=== PATIENT | female | born 1955 | race Caucasian/White ===

== ENCOUNTER 2024-02-17 11:56 | Emergency (ER) | payer OTHER ==
[~2024-02-17] VITALS: Ht 154.9 cm; Wt 95.0 kg
[2024-02-17 12:41] LABS: Basophils # (auto) 0 10 ^3/uL (0-0.2); Basophils % (auto) 0.3 % (0.0-2.0); Eosinophils # (auto) 0 10 ^3/uL (0-0.8); Eosinophils % (auto) 0.2 % (0.0-7.0); Hematocrit 42.7 % (36.0-46.0); Hemoglobin 13.9 g/dL (12.2-16.2); Lymphocytes # (auto) 1.5 10 ^3/uL (0.4-5.4); Lymphocytes % (auto) 9.5 % (10.0-50.0); Mean Corpuscular Hemoglobin 28.4 pg (28.0-32.0); Mean Corpuscular Hgb Conc. 32.6 g/dL (32.0-36.0); Monocytes # (auto) 1.1 10 ^3/uL (0-1.3); Monocytes % (auto) 6.6 % (0.0-12.0); Neutrophils # (auto) 13.3 10 ^3/uL (1.6-8.6); Neutrophils % (auto) 83.4 % (37.0-80.0); Red Blood Cells 4.91 10^6/uL (4.0-5.20); Red Cell Distribution Width 13.9 % (11.8-14.3)
[2024-02-17 13:10] LABS: Chloride 103 mmol/L (98-107); Potassium 3.7 mmol/L (3.5-5.1); Sodium 136 mmol/L (136-145)
[2024-02-17 13:11] LABS: Anion Gap 8 (5-15); Calcium 9.2 mg/dL (8.7-10.4); Carbon Dioxide 25 mmol/L (20-30)
[2024-02-17 13:16] LABS: BUN/Creatinine Ratio 11.1 (10.0-20.0); Blood Urea Nitrogen 8 mg/dL (9-23); Glucose 112 mg/dL (74-106)
[2024-02-17] MEDS: cefTRIAXone 1GM/50ML D5W 50 ML IV ONE (13:57)
[2024-02-17] MEDS: ASPirin 81 mg TAB PO ONE (13:58)
[2024-02-17] MEDS: cloNIDine HCL 0.1 MG TAB PO ONE (14:06)
[2024-02-17 14:35] VITALS: PULSE 96; RESP 17; O2SAT 95
[2024-02-17] MEDS: SODIUM CHLORIDE 0.9% 500 ML IV ONE (17:21)
[2024-02-17] MEDS: KETOROLAC TROMETH 30 MG/ML 1ML VIAL IV ONE (17:22)
[2024-02-17 19:00] VITALS: PULSE 96; RESP 22; O2SAT 93
[2024-02-17 19:51] LABS: Rapid Influenza A Negative (Negative)
[2024-02-17 19:52] LABS: Rapid Influenza B Negative (Negative)
[2024-02-17 19:55] LABS: COVID19 ANTIGEN SOFIA FIA POSITIVE (NEGATIVE)
[2024-02-17] MEDS ORDERED: NIRM1TAB8 PO (20:04)
[2024-02-17] MEDS ORDERED: METH4TAB PO (20:16)
[2024-02-17] MEDS: HYDROcodone-ACET 10/325MG TAB PO ONE (20:41)
[2024-02-17] MEDS: methylPREDNISolone SOD SUCC 125 MG/2 ML VL IV ONE (20:41)
[2024-02-17 21:00] VITALS: BP 141/63; PULSE 93; RESP 26; TEMP 98.3; O2SAT 95
== END 2024-02-17 21:53 | disposition admitted as inpatient to this hospital (09) ==
LOC: ER 11:56 → EDBD 11:56 → ER 21:53
DX: A41.89 Other specified sepsis (principal); U07.1 COVID-19; N39.0 Urinary tract infection, site not specified; I24.89 Other forms of acute ischemic heart disease; I10 Essential (primary) hypertension; Z91.040 Latex allergy status
CPT/HCPCS: 36415; 71045; 72131; 72192; 80048; 83605; 84484; 85025; 87040; 87426; 87804; 93005; 96365; 96375; 99285; J0696; J1885; J2919; J7040; 81002; 96361

== ENCOUNTER 2024-09-14 15:10 | Emergency (ER) | payer OTHER ==
[~2024-09-14] VITALS: Ht 160 cm; Wt 91.0 kg
[~2024-09-14 15:10] MED LIST: METH4TAB PO; NIRM1TAB8 PO
--- NOTE | 2024-09-14 16:41 | DVH ---
CHEST RADIOGRAPH Indication: cough Technique: Frontal and lateral view of the chest was obtained Comparison: None FINDINGS: Lines and Tubes: None Lungs: Clear Pleura: No effusion. No pneumothorax. Cardiomediastinal contours: Unremarkable Bones: Unremarkable IMPRESSION: 1. No evidence of acute disease.
[2024-09-14 17:21] LABS: Basophils # (auto) 0.1 10 ^3/uL (0-0.2); Basophils % (auto) 0.6 % (0.0-2.0); Eosinophils # (auto) 0.3 10 ^3/uL (0-0.8); Eosinophils % (auto) 2.8 % (0.0-7.0); Hemoglobin 14.6 g/dL (12.2-16.2); Lymphocytes # (auto) 1.5 10 ^3/uL (0.4-5.4); Lymphocytes % (auto) 14.4 % (10.0-50.0); Mean Corpuscular Hemoglobin 28.8 pg (28.0-32.0); Mean Corpuscular Hgb Conc. 33.2 g/dL (32.0-36.0); Mean Corpuscular Volume 86.7 fL (80.0-100.0); Monocytes # (auto) 0.7 10 ^3/uL (0-1.3); Monocytes % (auto) 7.3 % (0.0-12.0); Neutrophils # (auto) 7.5 10 ^3/uL (1.6-8.6); Neutrophils % (auto) 74.9 % (37.0-80.0); Platelet Count (auto) 248 10^3/uL (140-450); Red Blood Cells 5.08 10^6/uL (4.0-5.20); Red Cell Distribution Width 13.1 % (11.8-14.3); White Blood Cell 10.1 10^3/uL (4.4-10.8)
[2024-09-14 17:38] LABS: Alanine Aminotransferase 16 U/L (7-40); Albumin 4.2 g/dL (3.2-4.8); Alkaline Phosphatase 92 U/L (46-116); Anion Gap 8 (5-15); Aspartate Aminotransferase 17 U/L (13-40); BUN/Creatinine Ratio 12.8 (10.0-20.0); Blood Urea Nitrogen 10 mg/dL (9-23); Calcium 9.3 mg/dL (8.7-10.4); Carbon Dioxide 23 mmol/L (20-31); Glucose 102 mg/dL (74-106); Potassium 3.6 mmol/L (3.5-5.1); Sodium 139 mmol/L (136-145); Total Protein 6.7 g/dL (5.7-8.2)
[2024-09-14 17:50] LABS: Bilirubin, Total 0.2 mg/dL (0.2-1.0); Chloride 108 mmol/L (98-107)
--- NOTE | 2024-09-14 18:47 | ED.PDOC ---
SOB-HPI HPI Comments 69-YEAR-OLD FEMALE WHO PRESENTS TO ER WITH COMPLAINTS OF COUGH X3 DAYS. PATIENT PRESENTS VIA EMS, REPORTING SHE HAS BEEN EXPERIENCING A DRY COUGH X3 DAYS. DENIES ANY CURRENT PAIN. DENIES USE OF MEDICATIONS FOR CURRENT SYMPTOMS. PATIENT STATES THAT SHE DOES LIVE WITH ROOMMATES, DENYING ANY KNOWN EXPOSURE TO SICK CONTACTS. PATIENT PRESENTS TO ER FEBRILE ON ARRIVAL AT 100.0 F, ALERT AND ORIENTED X4, IN NO DISTRESS. 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 History Family History Family History: Unknown Social History Smoker: Non-Smoker Alcohol: Denies ETOH Use Drugs: Denies Drug Use Lives In: Assisted Care Constitutional: denies: chills, diaphoresis, fatigue, fever, malaise, sweats, weakness, others EENTM: denies: blurred vision, double vision, ear bleeding, ear discharge, ear drainage, ear pain, ear ringing, eye pain, eye redness, hearing loss, mouth pain, mouth swelling, nasal discharge, nose bleeding, nose congestion, nose pain, photophobia, tearing, throat pain, throat swelling, voice changes, others Respiratory: reports: others (As stated in HPI) Cardiovascular: denies: chest pain, dizzy spells, diaphoresis, Dyspnea on exertion, edema, irregular heart beat, left arm pain, lightheadedness, palpitations, PND, syncope, others Gastrointestinal: denies: abdomen distended, abdominal pain, blood streaked bowels, constipated, diarrhea, dysphagia, difficulty swallowing, hematemesis, melena, nausea, poor appetite, poor fluid intake, rectal bleeding, rectal pain, vomiting, others Genitourinary: denies: abnormal vagina bleeding, burning, dyspareunia, dysuria, flank pain, frequency, hematuria, incontinence, pain, , vagina discharge, urgency, others Neurological: denies: dizziness, fainting, headache, left sided numbness, left sided weakness, numbness, paresthesia, pre-existing deficit, right sided numbness, right sided weakness, seizure, speech problems, tingling, tremors, weakness, others Musculoskeletal: denies: back pain, gout, joint pain, joint swelling, muscle pain, muscle stiffness, neck pain, others Integumetry: denies: bruises, change in color, change in hair/nails, dryness, laceration, lesions, lumps, rash, wounds, others Allergic/Immunocompromised: denies: Difficulty Healing, Frequent Infections, Hives, Itching, others Hematologic/Lymphatic: denies: anemia, blood clots, easy bleeding, easy bruising, swollen glands, others Endocrine: denies: excessive hunger, excessive sweating, excessive thirst, excessive urination, flushing, intolerance to cold, intolerance to heat, unexplained weight gain, unexplained weight loss, others Psychiatric: denies: anxiety, bipolar disorder, depression, hopeless, panic disorder, schizophrenia, sleepless, suicidal, others Physical Exam General Appearance: No Apparent Distress, Obese HEENT: Normal ENT Inspection, PERRL/EOMI, Pharynx Normal, TMs Normal Neck: Full Range of Motion, Non-Tender, Normal Respiratory: Chest Non-Tender, Lungs Clear, No Accessory Muscle Use, No Respiratory Distress, Normal Breath Sounds Cardiovascular: No Murmur, No Gallop, Regular Rate/Rhythm Breast Exam: Deferred Gastrointestinal: Non Tender, No Pulsatile Mass, Soft Genitalia: Deferred Pelvic: Deferred Rectal: Deferred Extremities: Normal capillary refill, Normal range of motion Neurologic: Alert, guide setter II-XII nml as Tested, No Motor Deficits, Normal Affect, Normal Mood, No Sensory Deficits Cerebellar Function: Normal Reflexes: Normal Skin: Dry, Normal Color, Warm Peripheral Pulses: 2+ Radial (R), 2+ Radial (L), 2+ Brachial (R), 2+ Brachial (L) Lymphatic: No Adenopathy Was a procedure done? Was a procedure done?: No Sedation Sedation?: No Differential Dx Differential Diagnosis: Pneumonia, Pulmonary Embolism, Respiratory Distress, URI, Other (covid-19) X-Ray, Labs, Meds, VS Vital Signs Date Time Temp Pulse Resp B/P (MAP) Pulse Ox O2 Delivery O2 Flow Rate FiO2 09/14/24 20:40 99.3 94 14 149/61 (90) 97 99.3 12/30/24 19:05 110 18 97 Room Air 12/30/24 19:05 100.0 110 18 185 (105) 97 100.0 09/14/24 18:58 100.0 09/14/24 15:17 100.0 110 18 185 (105) 97 Lab Test 09/14/24 18:53 09/14/24 16:58 Range/Units Influenza Type A Antigen Positive Negative Influenza Type B Antigen Negative Negative SARS-CoV-2 Antigen (Rapid) Negative NEGATIVE White Blood Count 10.1 4.4-10.8 10^3/uL Red Blood Count 5.08 4.0-5.20 10^6/uL Hemoglobin 14.6 12.2-16.2 g/dL Hematocrit 44.0 36.0-46.0 % Mean Corpuscular Volume 86.7 80.0-100.0 fL Mean Corpuscular Hemoglobin 28.8 28.0-32.0 pg Mean Corpuscular Hemoglobin Concent 33.2 32.0-36.0 g/dL Red Cell Distribution Width 13.1 11.8-14.3 % Platelet Count 248 140-450 10^3/uL Mean Platelet Volume 7.8 6.9-10.8 fL Neutrophils (%) (Auto) 74.9 37.0-80.0 % Lymphocytes (%) (Auto) 14.4 10.0-50.0 % Monocytes (%) (Auto) 7.3 0.0-12.0 % Eosinophils (%) (Auto) 2.8 0.0-7.0 % Basophils (%) (Auto) 0.6 0.0-2.0 % Neutrophils # (Auto) 7.5 1.6-8.6 10 ^3/uL Lymphocytes # (Auto) 1.5 0.4-5.4 10 ^3/uL Monocytes # (Auto) 0.7 0-1.3 10 ^3/uL Eosinophils # (Auto) 0.3 0-0.8 10 ^3/uL Basophils # (Auto) 0.1 0-0.2 10 ^3/uL Nucleated Red Blood Cells 0.0 % Sodium Level 139 136-145 mmol/L Potassium Level 3.6 3.5-5.1 mmol/L Chloride Level 108 H 98-107 mmol/L Carbon Dioxide Level 23 20-31 mmol/L Anion Gap 8 5-15 Blood Urea Nitrogen 10 9-23 mg/dL Creatinine 0.78 0.550-1.02 mg/dL Glomerular Filtration Rate Calc 81 >90 mL/min BUN/Creatinine Ratio 12.8 10.0-20.0 Serum Glucose 102 74-106 mg/dL Calcium Level 9.3 8.7-10.4 mg/dL Total Bilirubin 0.2 0.2-1.0 mg/dL Aspartate Amino Transferase (AST) 17 13-40 U/L Alanine Aminotransferase (ALT) 16 7-40 U/L Alkaline Phosphatase 92 46-116 U/L Troponin I High Sensitivity 7 </=34 ng/L B-Type Natriuretic Peptide 77.75 0-100 pg/mL Total Protein 6.7 5.7-8.2 g/dL Albumin 4.2 3.2-4.8 g/dL Current Medications Medications (Trade) Dose Ordered Sig/Fermín Route Start Time Stop Time Status Last Admin Acetaminophen (Tylenol Tablet) 650 mg ONCE ONCE PO 09/14/24 18:30 09/14/24 18:31 DC 09/14/24 18:58 PATIENT: ROBERT LOPEZ ACCT: [id number] UNIT: [id number] : 1955 LOC: ER ROOM / BED: / AGE / SEX: 69 / F ADM STATUS: REG ER SERVICE 13 ORDERING PHYSICIAN: LUIS ASHLEY PAYROLL PROCESSOR PROCEDURE(s): CXR2 - CHEST TWO VIEWS ROUTINE REASON: cough ORDER NUMBER(s): [id number], ACCESSION NUMBER(s): [id number] CHEST RADIOGRAPH Indication: cough Technique: Frontal and lateral view of the chest was obtained Comparison: None FINDINGS: Lines and Tubes: None Lungs: Clear Pleura: No effusion. No pneumothorax. Cardiomediastinal contours: Unremarkable Bones: Unremarkable IMPRESSION: 1. No evidence of acute disease. ATED BY: DUNG MARTEL MD DICTATED DATE/TIME: 09/14/241638 SIGNED BY: DUNG MARTEL MD SIGNED DATE/TIME: 09/14/241638 CC: Chest x-ray reviewd CBC reviewed-unremarkable BMP reviewed without any significant abnormalities Troponin reviewed-normal BNP reviewed-normal Tylenol 650 mg p.o. ordered Influenza A reviewed- positive Influenza B reviewed -negative Krysta reviewed -negative Patient had improvement in symptoms and in no distress prior to discharge Advised to drink plenty of fluids Advised to follow up with PCP in 1-2 days Patient alert and oriented x4 prior to discharge. Patient verbalized understanding and agreeable with current plan of care Advised to return to ER immediately if symptoms worsen Images Reviewed?: Images reviewed and evaluated by me Time of 1ST Reevaluation: 18:42 Reevaluation 1ST: N/A Time of 2ND Reevaluation: 20:22 Reevaluation 2ND: Improved Patient Education/Counseling: Diagnosis, Treatment, Prognosis, Need For Follow Up Family Education/Counseling: No Family Present Departure 1 Departure Time of Disposition: 20:32 Impression: Primary Impression: Influenza A Disposition: HOME / SELF CARE / HOMELESS Condition: Stable e-Prescriptions Oseltamivir Phosphate (Tamiflu) 75 Mg Cap 1 CAP PO BID for 5 Days, #10 CAP 0 Refills Prov: MISAEL PICKENS 09/14/24 Acetaminophen (Acetaminophen) 500 Mg Tab 500 MG PO Q4HPRN, #30 TAB 0 Refills Prov: MISAEL PICKENS 09/14/24 Discharged With: Friend Critical Care Note Critical Care Time?: No Stability Stability form required: No Heart Score Heart Score: Heart Score Response (Comments) Value History N/A 0 EKG N/A 0 Age N/A 0 Risk Factors N/A 0 Troponin N/A 0 Total 0 MISAEL PICKENS Sep 14, 2024 18:47
[2024-09-14] MEDS: ACETAMINOPHEN 325 MG TAB PO ONE (18:58)
[2024-09-14 20:33] LABS: COVID19 ANTIGEN SOFIA FIA NEGATIVE (NEGATIVE); Rapid Influenza A Positive (Negative); Rapid Influenza B Negative (Negative)
[2024-09-14] MEDS ORDERED: OSEL75CA5 PO (20:36)
[2024-09-14] MEDS ORDERED: ACET500T58 PO (20:36)
[2024-09-14 20:40] VITALS: BP 149/61; PULSE 94; RESP 14; TEMP 99.3; O2SAT 97
== END 2024-09-14 21:00 | disposition home or self-care (01) ==
LOC: EDBD 15:10 → ER 15:10
DX: J10.1 Influenza due to other identified influenza virus with other respiratory manifestations (principal); Z90.49 Acquired absence of other specified parts of digestive tract; Z20.822 Contact with and (suspected) exposure to COVID-19
CPT/HCPCS: 36415; 71046; 80053; 83880; 84484; 85025; 87426; 87804

== ENCOUNTER 2025-02-17 00:25 | Inpatient (IN) | payer MEDICAID, OTHER ==
[~2025-02-17] VITALS: Ht 154.9 cm; Wt 80.0 kg
[2025-02-17] VITALS (12 sets, daily range): BP systolic 133–160; BP diastolic 51–82; PULSE 76–100; RESP 16–20; TEMP 97.5–98.1; O2SAT 92–98
[~2025-02-17 00:25] MED LIST changes: +ACET500T58 PO; +OSEL75CA5 PO
[2025-02-17] MEDS ORDERED: ACETAMINOPHEN 325 MG TAB PO PRN (03:15)
--- NOTE | 2025-02-17 03:57 | DVHHPRES ---
History of Present Illness Resident Creating Document: MINDYCHASITYBRANDAN BrainCELINAE History of Present Illness A 69-year-old female with no past medical history of relevance who takes no medications at home. The patient was brought to our facility via direct admission from [facility] due to altered level of consciousness. Per peer to peer review, the patient was found unresponsive with foam on the mouth in a car. On admission, while talking to the patient, she reports that she was with two friends in the street and she was using a wheelchair when she started to feel dizzy and lost consciousness. The patient states that he is not able to recall the entire scenario but that they are friends told her that she was having foaming in the mouth and that her eyes rolled back and were all white so they called EMS. The patient states that her friends did not mention any shakiness, abnormal moving of the upper or lower extremities during the episode. The patient also denies any history of seizures and states that this is the 1st episode with these kind of symptoms. On admission, the patient is alert and oriented in person, place and time, denied headache, chest pain, shortness of breath, fever/chills, weakness or dizziness. Patient will be admitted for further assessment and management. Past medical history: Denies Home medications: Occasional Benadryl for allergies Surgical history: Cholecystectomy, appendectomy, two surgeries of the left knee unspecified Social history: Reports occasional marijuana use but denies alcohol and stated that she quit smoking long time ago. Patient rents a room from a friend. Past Surgical History: Appendectomy, Cholecystectomy, Other (Unspecified left knee surgery x2) Family History: None Smoke: Quit ALCOHOL: none Drugs: Marijuana Lives: Friends Domestic Violence: Neg Review of Systems Constitutional: No: Fever, Chills, Sweats, Weakness, Malaise, Other Eyes: No: Pain, Vision change, Conjunctivae inflammation, Eyelid inflammation, Other, Redness ENT: No: Ear pain, Ear discharge, Nose pain, Nose discharge, Nose congestion, Mouth pain, Mouth swelling, Throat pain, Throat swelling, Other Respiratory: No: Cough, Dry, Shortness of breath, SOB with excertion, Wheezing, Hemoptysis, Pleuritic Pain, Sputum, Wheezing, Other Cardiovascular: No: Chest Pain, Palpitations, Orthopnea, Paroxysmal Noc. Dyspnea, Edema, Lt Headedness, Other Gastrointestinal: No: Nausea, Vomiting, Abdominal Pain, Diarrhea, Constipation, Melena, Hematochezia, Other Genitourinary: No Dysuria, No Frequency, No Incontinence, No Hematuria, No Retention, No Other Musculoskeletal: No: other, neck pain, shoulder pain, arm pain, back pain, hand pain, leg pain, foot pain Skin: No: Rash, Lesions, Jaundice, Bruising, Other Neurological: No: Weakness, Numbness, Incoordination, Change in speech, Confusion, Seizures, Other Allergies: Coded Allergies: Iodine (Verified Allergy, Unknown, 02/17/24) Medications Current Medications Medications Dose Ordered Sig/Fermín Route Start Time Stop Time Status Last Admin Dose Admin Acetaminophen 650 mg Q6HP PRN PO 02/17/25 03:15 Acetaminophen/ Hydrocodone Bitart 1 tab Q4HP PRN PO 02/17/25 03:15 Enoxaparin Sodium 40 mg DAILY SC 02/17/25 10:00 UNV Exam Vital Signs Vital Signs Date Time Temp Pulse Resp B/P (MAP) Pulse Ox O2 Delivery O2 Flow Rate FiO2 02/17/25 01:55 97.8 80 18 133/60 (84) 96 97.8 General Appearance: Alert, Oriented X3, Cooperative, No acute distress HEENT: Atraumatic, PERRLA, EOMI, Mucous membr. moist/pink Respiratory: Clear to auscultation, Normal air movement Cardiovascular: Regular rate, Normal S1, Normal S2, No murmurs Abdominal: Normal bowel sounds, Soft, No tenderness, No hepatospenomegaly Extremities: No clubbing, No cyanosis, No edema, Normal pulses, No tenderness/swelling Skin: No rashes, No breakdown, No significant lesion Neuro: Normal gait, Normal speech, Strength at 5/5 X4 ext, Normal tone, Sensati on intact, Cranial nerves 3-12 NL, Reflexes 2+ Psych/Mental Status: Mental status NL, Mood NL Assessment/Plan Assessment/Plan Assessment/plan Altered level of consciousness, R/O seizure disorder Acute metabolic/toxic encephalopathy Acute UTI Possible episode of seizure Plan -ordered chest x-ray -ordered ammonia levels, TSH, free T4, folate, lactic acid, CBC, CMP, EKG, ECHO -consult neurology for possible seizure disorder and to evaluate possibility of EEG -CT of the head performed at [facility] before admission was grossly unremarkable -Ordered UA and UDS -Start IV fluids NS at 60cc/hr -Start IV ceftriaxone Goals of care discussed with the patient at bedside, FULL CODE Plan discussed with Dr. Kendrick Plan discussed with: Patient My Orders Orders - GAUTAM RODAS Procedure Category Date Status Time Complete Blood Count LAB 02/17/25 Logged 02:49 Comprehensive LAB 02/17/25 Logged Metabolic Panel 02:49 Admit ADMIT 02/17/25 Transmitted 03:01 Code Status CODE 02/17/25 Transmitted 03:01 Vital Signs JOHN 02/17/25 In Process 03:01 Review Orders With JOHN 02/17/25 In Process Adm.Md 03:01 Encourage Activity As JOHN 02/17/25 In Process Tolerate 03:01 Regular Diet DIET 02/17/25 Transmitted Breakfast Acetaminophen Tablet PHA 02/17/25 In Process (Tylenol Tablet) 03:15 Notify Md Of Changes JOHN 02/17/25 In Process From Base 03:01 Advance Directive JOHN 02/17/25 In Process 03:01 Urinalysis LAB 02/17/25 Logged 03:01 Patient Condition ORDERS 02/17/25 Transmitted 03:01 Allergies JOHN 02/17/25 In Process 03:01 Hydrocodone-Acet PHA 02/17/25 In Process 5/325mg Tab (Talent 03:15 Drug Screen LAB 02/17/25 Logged 03:01 Hemoglobin A1c LAB 02/17/25 Logged 03:01 Enoxaparin Sodium PHA 02/17/25 Pending (Lovenox) 10:00 Electrocardigram EKG 02/17/25 Logged 03:01 Lactic Acid W/ Reflex LAB 02/17/25 Logged Order 03:04 Chest Xray 1 View XY 02/17/25 Logged 03:04 * Neurology Consult CONS 02/17/25 Transmitted 03:04 Lipid Panel LAB 02/17/25 Logged 02:49 Date of Service: Feb 17, 2025 Billing Provider: NATO KENDRICK MD Common Visit Codes: [id number] INP/OBS CARE (HIGH) Secondary Visit Codes: [id number] CARE PLAN 30 MINUTES GAUTAM RODAS Feb 17, 2025 03:57
[2025-02-17 04:22] LABS: Basophils # (auto) 0.1 10 ^3/uL (0-0.2); Basophils % (auto) 0.8 % (0.0-2.0); Eosinophils # (auto) 0.4 10 ^3/uL (0-0.8); Hemoglobin 13.6 g/dL (12.2-16.2); Lymphocytes # (auto) 2.9 10 ^3/uL (0.4-5.4); Lymphocytes % (auto) 24.3 % (10.0-50.0); Mean Corpuscular Hemoglobin 27.7 pg (28.0-32.0); Mean Corpuscular Hgb Conc. 32.4 g/dL (32.0-36.0); Mean Corpuscular Volume 85.6 fL (80.0-100.0); Monocytes # (auto) 0.7 10 ^3/uL (0-1.3); Monocytes % (auto) 6.2 % (0.0-12.0); Neutrophils # (auto) 7.8 10 ^3/uL (1.6-8.6); Neutrophils % (auto) 65.7 % (37.0-80.0); Nucleated Red Blood Cells % 0.1 %; Platelet Count (auto) 268 10^3/uL (140-450); Red Blood Cells 4.91 10^6/uL (4.0-5.20); Red Cell Distribution Width 13.5 % (11.8-14.3); White Blood Cell 11.9 10^3/uL (4.4-10.8)
[2025-02-17 04:23] LABS: Alanine Aminotransferase 15 U/L (7-40); Albumin 3.9 g/dL (3.2-4.8); Alkaline Phosphatase 73 U/L (46-116); Anion Gap 9 (5-15); Aspartate Aminotransferase 16 U/L (13-40); BUN/Creatinine Ratio 15.9 (10.0-20.0); Bilirubin, Total 0.5 mg/dL (0.2-1.0); Blood Urea Nitrogen 10 mg/dL (9-23); Carbon Dioxide 25 mmol/L (20-31); Glucose 88 mg/dL (74-106); Potassium 3.8 mmol/L (3.5-5.1); Sodium 144 mmol/L (136-145); Total Protein 6.7 g/dL (5.7-8.2)
[2025-02-17 04:34] LABS: Chloride 110 mmol/L (98-107)
[2025-02-17 04:58] LABS: Triglycerides 100 mg/dL (< 150)
[2025-02-17 04:59] LABS: LDL Cholesterol 68 mg/dL (< 100)
[2025-02-17 05:00] LABS: Cholesterol 112 mg/dL (< 200)
[2025-02-17 05:02] LABS: HDL Cholesterol 30 mg/dL (40-59)
[2025-02-17 06:37] LABS: Urine Bacteria FEW /hpf (None Seen); Urine Blood TRACE /uL (Negative); Urine Clarity Turbid (Clear); Urine Color Light-Yellow (Yellow); Urine Protein, UAD Negative (Negative); Urine Specific Gravity 1.015 (1.001-1.035); Urine Squamous Epithelial Cell FEW /hpf (<5); Urine Urobilinogen Normal (Negative); Urine WBC 152 /HPF (0-5)
[2025-02-17 06:40] LABS: Amphetamine Screen, Urine Neg (NEGATIVE); Barbiturate Scree,Urine Neg (NEGATIVE); Benzodiazephine Screen, Urine Neg (NEGATIVE); Cannabinoid Screen, Urine Neg (NEGATIVE); Cocaine Screen, Urine Neg (NEGATIVE); Opiate Scree,Urine Neg (NEGATIVE); Phencyclidine Screen, Urine Neg (NEGATIVE)
--- NOTE | 2025-02-17 06:44 | DVH ---
CHEST RADIOGRAPH Indication: eval lung parenchyma Technique: Single frontal view of the chest was obtained Comparison: XY CHEST XRAY 1 VIEW on DOS: 02/17/24 FINDINGS: Lines and Tubes: None Lungs: No focal consolidation. Pleura: No effusion. No pneumothorax. Cardiomediastinal contours: Unremarkable Bones: No acute osseous abnormality. IMPRESSION: 1. No acute cardiopulmonary disease.
[2025-02-17 07:19] LABS: Folate (Folic Acid) 9.34 ng/mL (>5.38); Free T4 (Free Thyroxine) 1.31 ng/dL (0.89-1.76)
[2025-02-17 07:22] LABS: COVID19 ANTIGEN SOFIA FIA NEGATIVE (NEGATIVE); Rapid Influenza A Negative (Negative); Rapid Influenza B Negative (Negative)
[2025-02-17] MEDS: cefTRIAXone 1GM/50ML D5W 50 ML IV SCH (08:52)
[2025-02-17] MEDS: ENOXAPARIN SOD 40 MG/0.4 ML SYRINGE SC SCH (08:59)
--- NOTE | 2025-02-17 09:40 | DVH ---
CT HEAD WITHOUT CONTRAST INDICATION: rule out stroke EXAM DATE: 02/17/2025 09:04 AM COMPARISON: None RADIATION DOSE: CTDIvol: 51.22 mGy, DLP: 1009.64 mGy*cm PROCEDURE: CT scans of the head were obtained from the vertex to the skull base. Sagittal and coronal reconstructions were provided. All CT scans at this medical facility are performed using dose modulation techniques as appropriate t o a performed exam including the following: Automated exposure control was utilized; adjustment of th e MA and/or KV according to patient size; and use of iterative reconstruction technique. FINDINGS: There is sulcal and ventricular prominence. The brainshows normal morphology and vega-whi te matter differentiation, without intracranial hemorrhage, extra-axial fluid collection, mass effect or acute large vessel infarct. The ventricles are normal in size. The basal cisterns are patent. The skull and visible facial bones are intact. The paranasal sinuses, mastoid air cells and middle ear c avities are well-aerated. The soft tissues of the scalp are unremarkable. IMPRESSION: No acute intracranial abnormality.
--- NOTE | 2025-02-17 10:27 | ECG ---
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
--- NOTE | 2025-02-17 10:48 | DVHPNRES ---
Progress Note Date Seen: Feb 17, 2025 Resident Creating Document: MONY WAITE RESIDENT Has the PT tested + for MRSA If YES, has PT been informed?: No Medical Necessity Reason Pt with a Central, PICC or Fol: No Subjective Review of Systems A 69-year-old female with no past medical history of relevance who takes no medications at home. The patient was brought to our facility via direct admission from [facility] due to altered level of consciousness. Per peer to peer review, the patient was found unresponsive with foam on the mouth in a car. On admission, while talking to the patient, she reports that she was with two friends in the street and she was using a wheelchair when she started to feel dizzy and lost consciousness. The patient states that he is not able to recall the entire scenario but that they are friends told her that she was having foaming in the mouth and that her eyes rolled back and were all white so they called EMS. The patient states that her friends did not mention any shakiness, abnormal moving of the upper or lower extremities during the episode. The patient also denies any history of seizures and states that this is the 1st episode with these kind of symptoms. On admission, the patient is alert and oriented in person, place and time, denied headache, chest pain, shortness of breath, fever/chills, weakness or dizziness. Patient will be admitted for further assessment and management. Past medical history: Denies Home medications: Occasional Benadryl for allergies Surgical history: Cholecystectomy, appendectomy, two surgeries of the left knee unspecified Social history: Reports occasional marijuana use but denies alcohol and stated that she quit smoking long time ago. Patient rents a room from a friend. Past Surgical History: Appendectomy, Cholecystectomy, Other (Unspecified left knee surgery x2) Family History: None Smoke: Quit ALCOHOL: none Drugs: Marijuana Lives: Friends Domestic Violence: Neg 02/17/2025: Head CT scan and brain MRI with no abnormalities, stroke was ruled out, neurology stated an episodic event and possible gait disorder, no need of seizure treatment at the moment, patient is stable, possible DC tomorrow Objective vital signs Vital Sign Date Time Temp Pulse Resp B/P (MAP) Pulse Ox O2 Delivery O2 Flow Rate FiO2 02/17/25 09:00 97.9 81 18 142/51 (81) 92 97.9 02/17/25 02:46 Room Air* 0 21 Total Intake and Output 02/16/25 02/16/25 02/17/25 15:00 23:00 07:00 Intake Total 100 ml Balance 100 ml medications Current Medications Medications Dose Ordered Sig/Fermín Route Start Time Stop Time Status Last Admin Dose Admin Acetaminophen 650 mg Q6HP PRN PO 02/17/25 03:15 Acetaminophen/ Hydrocodone Bitart 1 tab Q4HP PRN PO 02/17/25 03:15 Enoxaparin Sodium 40 mg DAILY SC 02/17/25 10:00 02/17/25 08:59 40 MG Ceftriaxone Sodium 50 ml @ 100 mls/hr DAILY@09 IV 02/17/25 09:00 02/17/25 08:52 100 MLS/HR Examination General Appearance: Alert, Oriented X3, Cooperative, No acute distress HEENT: Atraumatic, PERRLA, EOMI, Mucous membr. moist/pink Respiratory: Clear to auscultation, Normal air movement Cardiovascular: Regular rate, Normal S1, Normal S2, No murmurs Abdominal: Normal bowel sounds, Soft, No tenderness, No hepatospenomegaly Extremities: No clubbing, No cyanosis, No edema, Normal pulses, No tenderness/swelling Skin: No rashes, No breakdown, No significant lesion Neuro: Normal gait, Normal speech, Strength at 5/5 X4 ext, Normal tone, Sensation intact, Cranial nerves 3-12 NL, Reflexes 2+ Psych/Mental Status: Mental status NL, Mood NL laboratory and microbiology Laboratory Tests 02/17/25 03:32 Test 02/17/25 03:32 Range/Units Serum Glucose 88 74-106 mg/dL Problem List/Assessment/Plan Problem List/Assessment/Plan #Acute metabolic/toxic encephalopathy due to sepsis? #Possible episodic event of seizure #Stroke ruled out #Sepsis: Acute UTI #Hypertension? Plan chest x-ray: normal Head ct scan normal, MRI normal ammonia levels normal , TSH, free T4 normal , folate normal , lactic acid normal , CBC mild leukocytosis, CMP normal, EKG NSR , ECHO normal EF 60% -consult neurology: EEG, no need of seizure medication -CT of the head performed at [facility] before admission was grossly unremarkable - UA: UTI and UDS NEG -Continue IV ceftriaxone Goals of care discussed with the patient at bedside, FULL CODE Plan discussed with Dr. Raphael Plan discussed with: Patient, Other (rn) My Orders My Orders Orders - MONY WAITE Procedure Category Date Status Time Ceftriaxone 1gm/50ml PHA 02/17/25 In Process D5w (Rocephin) 09:[address] 02/17/25 Resulted 08:47 Brain Head Wo Contrast MRI 02/17/25 Logged 10:26 Date of Service: Feb 17, 2025 Billing Provider: ROBERTA RUIZ MD Common Visit Codes: [id number] INP/OBS CARE(HIGH) MONY WAITE RESIDENT Feb 17, 2025 10:48 ROBERTA RUIZ MD Feb 18, 2025 13:45
--- NOTE | 2025-02-17 14:19 | DVHSR ---
APPROVED REPORT EXAM: Two-dimensional and M-mode echocardiogram with Doppler and color Doppler. Blood Pressure: 142/82 mmHg INDICATION ALOC RISK FACTORS Height: 5'1", Weight: 176 DIMENSIONS LVDd4.0 (3.8-5.7cm)LA (2D)3.8 (1.9-4.0cm)Aortic Root2.8 (2.0-3.7cm) LVDs2.8 (2.5-4.0cm)LA (MM) (1.9-4.0cm)Aortic Cusp Exc1.3 (1.5-2.0cm) EF (%) 55.0 (55-70%)Rt. Atrium2.3 (1.9-4.0cm)Asc. Aorta cm IVSd1.0 (0.7-1.1cm)RV (D) (1.8-2.4cm) PWd1.1 (0.7-1.1cm) Mitral Valve MitralMitral Stenosis E wave0.73m/sMV Mean GR.mmHg A wave0.99m/sMV Peak GR.mmHg E/A ratio0.72D MVAcm2 DECEL [id number] 1/2 Timems Aortic Valve Aortic ValveAortic Stenosis V10.90m/Crow Mean GR.3mmHg V21.16m/Crow Peak GR.5mmHg LVOT Diameter2.0 (1.8-2.4cm)Doppler AVA2.44cm2 Pulmonic Valve V21.01m/s Tricuspid Valve TR Velocity2.09m/s [id number] Other Information Quality : Technically LimitedRhythm : Technically limited study due to body habitus. Conclusion Technically good study. Sinus rhythm. Normal chamber sizes. Normal valves. EF of 60% with normal RV function. Dopplers unremarkable. No pericardial effusion masses or vegetations.
--- NOTE | 2025-02-17 16:10 | DVH ---
EXAMINATION: MRI BRAIN HEAD WO CONTRAST INDICATION: rule out stroke, episodes of seizures COMPARISON: CT head 02/17/2025 TECHNIQUE: Multiplanar, multisequence magnetic resonance imaging of the brain was performed without t he use of intravenous contrast. FINDINGS: There is no restricted diffusion. There is moderate cerebral volume loss. There are mild chronic smal l-vessel white matter ischemic changes. There is no evidence of hemorrhage, mass, mass effect or midl ine shift. There is no hydrocephalus or extra-axial fluid collection. The visualized intracranial vas culature demonstrates appropriate flow-voids. The sagittal midline structures appear unremarkable. Th e craniocervical junction is within normal limits. The calvarium demonstrates normal marrow signal. T he paranasal sinuses and mastoid air cells are clear. IMPRESSION: 1. There is no acute intracranial process. HS:Y
--- NOTE | 2025-02-17 22:25 | DVHINCON2 ---
Date of service: Feb 17, [address] Garcia Reason for Consultation Possible syncopal episode of seizure with no previous history of seizures History of Present Illness Ms. Hyde is a 69 years old right-handed female with a history of diabetes, chronic low back pain, obesity, she was transferred from the [facility] with a chief company of altered mental status, at that time, he is awake, oriented x3, he pr ovided the following history He remembers when he was in the wheelchair and his friend puts him, but next memory was waking up in the [facility], he was said to have a event where his eyes were rolling back, with foam in the mouth, but he is not aware of convulsion, he reports no history of similar problem or seizure disorder He reports difficulty with walking because of diabetes related weakness, but she is not able to further specify UDS, 02/17/2025: Negative Urinalysis, 02/17/2025: WBC: 152, urine leukocyte esterase: Positive CBC, 02/17/2025: WBC: 11.9 CMP, 02/17/2025: Unremarkable TG/HDL/LDL/HDL, 02/17/2025: 100/112/68/30 Folic acid, 02/17/25: 9.34 TSH, 02/17/25: 1.24 FT4, 02/17/2025: 1.31 MRI head, 02/17/2025: There is no acute intracranial process Past Medical History Diabetes,chronic low back pain Past Surgical History Appendectomy, cholecystectomy, left knee surgery, lumbar spine surgery Family History: Patient reports no known family medical history. Family History Blindness Social History She was a tobacco smoker, she uses marijuana sometimes, but no history of drug or alcohol abuse Allergies: Coded Allergies: Iodine (Verified Allergy, Unknown, 02/17/24) Home Meds Active Scripts Oseltamivir Phosphate (Tamiflu) 75 Mg Cap, 1 CAP PO BID for 5 Days, #10 CAP 0 Refills Prov:MISAEL PICKENS 09/14/24 Acetaminophen (Acetaminophen) 500 Mg Tab, 500 MG PO Q4HPRN, #30 TAB 0 Refills Prov:MISAEL PICKENS 09/14/24 Methylprednisolone (Medrol) 4 Mg Tb, 4 MG PO DAILY for 7 Days, #1 PACK 0 Refills Prov:MATHEW DIXON DO 02/17/24 Nirmatrelvir/Ritonavir (PAXLOVID 20 x 150 MG & 10 x 100MG) 1 Tab Tab, 1 TAB PO BID for 5 Days, #10 TAB 0 Refills Prov:MATHEW DIXON DO 02/17/24 Current Medications Current Medications Medications (Trade) Dose Ordered Sig/Fermín Route PRN Reason Start Time Stop Time Status Last Admin Acetaminophen (Tylenol Tablet) 650 mg Q6HP PRN PO PAIN SCALE 1-3 OR TEMP>100.4 02/17/25 03:15 Acetaminophen/ Hydrocodone Bitart ([place] 5/325MG Tab) 1 tab Q4HP PRN PO MODERATE PAIN (4-6 PAIN SCALE) 02/17/25 03:15 Enoxaparin Sodium (Lovenox) 40 mg DAILY SC 02/17/25 10:00 02/17/25 08:59 Ceftriaxone Sodium 50 ml @ 100 mls/hr DAILY@09 IV 02/17/25 09:00 02/17/25 08:52 Review of Systems As above, the other systems are negative Vital Signs Vital Signs Date Time Temp Pulse Resp B/P (MAP) Pulse Ox O2 Delivery O2 Flow Rate FiO2 02/17/25 21:00 97.5 87 20 153/67 (95) 97 97.5 02/17/25 20:00 Room Air* 0 21 Physical Exam GENERAL EXAM: General: the patient is well developed and nourished. No acute distress. HEENT: Normocephalic, neck is supple, no carotid bruits. No mass. RESPIRATORY: Normal respiratory effort with symmetrical lung expansion. Lungs clear to auscultation. CARDIOVASCULAR: Regular rate and rhythm with no murmurs. S1, S2. ABDOMEN: Soft, nontender, normal bowel sound NEUROLOGICAL: MENTAL STATUS: Awake and alert. Oriented to person, place, time and general circumstances. Able to give personal history. SPEECH, LANGUAGE, HIGHER CORTICAL FUNCTION: no aphasia or dysathria. CRANIAL NERVES: #2: Intact visual camilo to confrontation. The optic discs were sharp. #3,4,6: Pupils are equal, round and reactive. EOMs full and conjugate. No nystagmus. #5: Facial sensation intact in all three divisions bilaterally. Mandibular strength intact. #7: Facial muscles symmetrical and strength intact. #8: Hearing grossly normal to voice. #9,10: Uvula and soft palate rise in the midline. Swallow and voice are normal. #11: Trapezius and sternomastoid strength intact bilaterally. #12: Tongue midline. No fasciculations or atrophy. SENSATION: Sensation to touch and pinprick is normal. MOTOR: Normal tone in the upper and lower extremity. Normal muscle bulk. No fasciculations. No abnormal movements or posturing. Muscle strength of the major groups in the upper extremities is 5/5. Muscle strength of the major groups in the lower extremities is 5/5. REFLEXES: Deep tendon reflexes normal and symmetrical. No pathological ref lexes. CEREBELLAR/COORDINATION: Finger to nose is normal bilaterally. GAIT/STATION: deferred. Labs/Diagnostic Data Labs Test 02/17/25 10:10 02/17/25 06:30 02/17/25 06:05 02/17/25 05:05 Range/Units Troponin I High Sensitivity 4 </=34 ng/L Influenza Type A Antigen Negative Negative Influenza Type B Antigen Negative Negative SARS-CoV-2 Antigen (Rapid) Negative NEGATIVE Ammonia < 10 L 11-32 umol/L B-Type Natriuretic Peptide 64.87 0-100 pg/mL Folic Acid 9.34 >5.38 ng/mL Free Thyroxine (T4) Calculated 1.31 0.89-1.76 ng/dL Urine Color Light-yellow Yellow Urine Clarity Turbid H Clear Urine pH 6.0 5.0-9.0 Urine Specific [place] 1.015 1.001-1.035 Urine Protein Negative Negative Urine Ketones Negative Negative Urine Blood Trace H Negative /uL Urine Nitrite 1+ H Negative Urine Bilirubin Negative Negative Urine Urobilinogen Normal Negative mg/dL Urine Leukocyte Esterase 3+ Negative /uL Urine RBC 4 0 - 4 /hpf Urine Microscopic WBC 152 H 0-5 /HPF Urine Squamous Epithelial Cells Few <5 /hpf Urine Bacteria Few H None Seen /hpf Urine Glucose Normal Normal mg/dL Urine Opiates Screen Neg NEGATIVE Urine Fentanyl Screen Neg NEGATIVE Urine Barbiturates Screen Neg NEGATIVE Urine Phencyclidine Screen Neg NEGATIVE Urine Amphetamines Screen Neg NEGATIVE Urine Benzodiazepines Screen Neg NEGATIVE Urine Cocaine Screen Neg NEGATIVE Urine Cannabinoids Screen Neg NEGATIVE Test 02/17/25 03:32 02/17/25 03:04 Range/Units White Blood Count 11.9 H 4.4-10.8 10^3/uL Red Blood Count 4.91 4.0-5.20 10^6/uL Hemoglobin 13.6 12.2-16.2 g/dL Hematocrit 42.0 36.0-46.0 % Mean Corpuscular Volume 85.6 80.0-100.0 fL Mean Corpuscular Hemoglobin 27.7 L 28.0-32.0 pg Mean Corpuscular Hemoglobin Concent 32.4 32.0-36.0 g/dL Red Cell Distribution Width 13.5 11.8-14.3 % Platelet Count 268 140-450 10^3/uL Mean Platelet Volume 8.3 6.9-10.8 fL Neutrophils (%) (Auto) 65.7 37.0-80.0 % Lymphocytes (%) (Auto) 24.3 10.0-50.0 % Monocytes (%) (Auto) 6.2 0.0-12.0 % Eosinophils (%) (Auto) 3.0 0.0-7.0 % Basophils (%) (Auto) 0.8 0.0-2.0 % Neutrophils # (Auto) 7.8 1.6-8.6 10 ^3/uL Lymphocytes # (Auto) 2.9 0.4-5.4 10 ^3/uL Monocytes # (Auto) 0.7 0-1.3 10 ^3/uL Eosinophils # (Auto) 0.4 0-0.8 10 ^3/uL Basophils # (Auto) 0.1 0-0.2 10 ^3/uL Nucleated Red Blood Cells 0.1 % Sodium Level 144 136-145 mmol/L Potassium Level 3.8 3.5-5.1 mmol/L Chloride Level 110 H 98-107 mmol/L Carbon Dioxide Level 25 20-31 mmol/L Anion Gap 9 5-15 Blood Urea Nitrogen 10 9-23 mg/dL Creatinine 0.63 0.550-1.02 mg/dL Glomerular Filtration Rate Calc 95 >90 mL/min BUN/Creatinine Ratio 15.9 10.0-20.0 Serum Glucose 88 74-106 mg/dL Hemoglobin A1c 5.6 <5.7 % A1C Lactic Acid Level 1.5 0.4-2.0 mmol/L Calcium Level 9.0 8.7-10.4 mg/dL Total Bilirubin 0.5 0.2-1.0 mg/dL Aspartate Amino Transferase (AST) 16 13-40 U/L Alanine Aminotransferase (ALT) 15 7-40 U/L Alkaline Phosphatase 73 46-116 U/L Total Protein 6.7 5.7-8.2 g/dL Albumin 3.9 3.2-4.8 g/dL Triglycerides Level 100 < 150 mg/dL Cholesterol Level 112 < 200 mg/dL LDL Cholesterol 68 < 100 mg/dL HDL Cholesterol 30 L 40-59 mg/dL Thyroid Stimulating Hormone (TSH) 1.24 0.55-4.78 uIU/mL Assessment Episodic event, rule out seizure Gait disturbance Plan/Recommendation Monitoring Supportive treatment Telemetry EEG Ativan for seizure breakthrough No preventive seizure treatment DVT prophylaxis Physical therapy She does not drive More recommendation per clinical course Prognosis: Poor This medical document was created using an electronic medical record system with [employer] dictation system. Although this document has been carefully reviewed, there may still be some phonetic and typographical errors. These areas are purely typographical due to imperfections of the software programs, and do not reflect any compromise in the patient's medical care. Plan discussed with: Patient, Other AROLDO SILVA MD Feb 17, 2025 22:24
[2025-02-17] MEDS ORDERED: LORazepam 2MG/ML-1ML VIAL IV PRN (23:00)
[2025-02-18] VITALS (9 sets, daily range): BP systolic 122–160; BP diastolic 68–76; PULSE 67–82; RESP 18–20; TEMP 97.4–98.6; O2SAT 95–100
[2025-02-18] MEDS ORDERED: DIPH25CA66 PO (06:31)
[2025-02-18] MEDS: HYDROcodone-ACET 5/325MG TAB PO PRN (08:34)
[2025-02-18] MEDS ORDERED: LEVO500T91 PO (11:30)
[2025-02-18] MEDS ORDERED: ACET-1079 PO (11:30)
--- NOTE | 2025-02-18 12:00 | DVHDSRES ---
Discharge Summary Date of Admission Resident Creating Document: MONY WAITE RESIDENT Feb 17, 2025 at 02:23 Date of Discharge: Feb 18, 2025 Admitting Diagnosis acute metabolic encephalopathy Labs/Diagnostic Data: Laboratory Results Test 02/17/25 10:10 02/17/25 06:30 02/17/25 06:05 02/17/25 05:05 Troponin I High Sensitivity 4 ng/L (</=34) Influenza Type A Antigen Negative (Negative) Influenza Type B Antigen Negative (Negative) SARS-CoV-2 Antigen (Rapid) Negative (NEGATIVE) Ammonia < 10 umol/L (11-32) B-Type Natriuretic Peptide 64.87 pg/mL (0-100) Folic Acid 9.34 ng/mL (>5.38) Free Thyroxine (T4) Calculated 1.31 ng/dL (0.89-1.76) Urine Color Light-yellow (Yellow) Urine Clarity Turbid (Clear) Urine pH 6.0 (5.0-9.0) Urine Specific [place] 1.015 (1.001-1.035) Urine Protein Negative (Negative) Urine Ketones Negative (Negative) Urine Blood Trace /uL (Negative) Urine Nitrite 1+ (Negative) Urine Bilirubin Negative (Negative) Urine Urobilinogen Normal mg/dL (Negative) Urine Leukocyte Esterase 3+ /uL (Negative) Urine RBC 4 /hpf (0 - 4) Urine Microscopic WBC 152 /HPF (0-5) Urine Squamous Epithelial Cells Few /hpf (<5) Urine Bacteria Few /hpf (None Seen) Urine Glucose Normal mg/dL (Normal) Urine Opiates Screen Neg (NEGATIVE) Urine Fentanyl Screen Neg (NEGATIVE) Urine Barbiturates Screen Neg (NEGATIVE) Urine Phencyclidine Screen Neg (NEGATIVE) Urine Amphetamines Screen Neg (NEGATIVE) Urine Benzodiazepines Screen Neg (NEGATIVE) Urine Cocaine Screen Neg (NEGATIVE) Urine Cannabinoids Screen Neg (NEGATIVE) Test 02/17/25 03:32 02/17/25 03:04 White Blood Count 11.9 10^3/uL (4.4-10.8) Red Blood Count 4.91 10^6/uL (4.0-5.20) Hemoglobin 13.6 g/dL (12.2-16.2) Hematocrit 42.0 % (36.0-46.0) Mean Corpuscular Volume 85.6 fL (80.0-100.0) Mean Corpuscular Hemoglobin 27.7 pg (28.0-32.0) Mean Corpuscular Hemoglobin Concent 32.4 g/dL (32.0-36.0) Red Cell Distribution Width 13.5 % (11.8-14.3) Platelet Count 268 10^3/uL (140-450) Mean Platelet Volume 8.3 fL (6.9-10.8) Neutrophils (%) (Auto) 65.7 % (37.0-80.0) Lymphocytes (%) (Auto) 24.3 % (10.0-50.0) Monocytes (%) (Auto) 6.2 % (0.0-12.0) Eosinophils (%) (Auto) 3.0 % (0.0-7.0) Basophils (%) (Auto) 0.8 % (0.0-2.0) Neutrophils # (Auto) 7.8 10 ^3/uL (1.6-8.6) Lymphocytes # (Auto) 2.9 10 ^3/uL (0.4-5.4) Monocytes # (Auto) 0.7 10 ^3/uL (0-1.3) Eosinophils # (Auto) 0.4 10 ^3/uL (0-0.8) Basophils # (Auto) 0.1 10 ^3/uL (0-0.2) Nucleated Red Blood Cells 0.1 % Sodium Level 144 mmol/L (136-145) Potassium Level 3.8 mmol/L (3.5-5.1) Chloride Level 110 mmol/L (98-107) Carbon Dioxide Level 25 mmol/L (20-31) Anion Gap 9 (5-15) Blood Urea Nitrogen 10 mg/dL (9-23) Creatinine 0.63 mg/dL (0.550-1.02) Glomerular Filtration Rate Calc 95 mL/min (>90) BUN/Creatinine Ratio 15.9 (10.0-20.0) Serum Glucose 88 mg/dL (74-106) Hemoglobin A1c 5.6 % A1C (<5.7) Lactic Acid Level 1.5 mmol/L (0.4-2.0) Calcium Level 9.0 mg/dL (8.7-10.4) Total Bilirubin 0.5 mg/dL (0.2-1.0) Aspartate Amino Transferase (AST) 16 U/L (13-40) Alanine Aminotransferase (ALT) 15 U/L (7-40) Alkaline Phosphatase 73 U/L (46-116) Total Protein 6.7 g/dL (5.7-8.2) Albumin 3.9 g/dL (3.2-4.8) Triglycerides Level 100 mg/dL (< 150) Cholesterol Level 112 mg/dL (< 200) LDL Cholesterol 68 mg/dL (< 100) HDL Cholesterol 30 mg/dL (40-59) Thyroid Stimulating Hormone (TSH) 1.24 uIU/mL (0.55-4.78) Other Laboratory Tests 02/17/25 03:32 Brief Hx & Hospital Course: 69-year-old female presented with altered level of consciousness. Per EMS and peer report, she was found unresponsive with foaming at the mouth and rolled- back eyes while out in the street using a wheelchair. No recollection of the event. On arrival, she was alert and oriented. No signs of focal neurological deficits, chest pain, or shortness of breath. Hospital Course: Stroke workup (CT head, MRI brain) was negative. EEG showed no epileptiform activity. Neurology evaluation concluded possible episodic event, no need for anti-seizure medication. UA and UDS negative, but urinalysis consistent with UTI; IV ceftriaxone started. Workup showed mild leukocytosis and elevated BUN/Cr, possibly related to infection/dehydration. ECHO revealed normal EF (60%). Ammonia, TSH, folate, lactate, CMP, and EKG were all within normal limits. Medications on Discharge: Acetaminophen 325 mg PO q6h PRN (pain) Levofloxacin 500 mg PO daily x 5 days (for UTI) Diphenhydramine 25 mg PO qHS (for allergies) Condition on Discharge: Stable. Alert and oriented. No signs of acute infection or neurological impairment. Follow-Up: Follow up with primary care provider. Return to ED for any worsening symptoms, new confusion, or urinary symptoms. Consults/Reason for consult neurology due to possible seizure Operations or Procedures EXAM DATE: 02/18/2025 REFERRING DOCTOR: Dr. Richter TECHNIQUE: Eighteen channels of EEG, 2 channels of EOG, and 1 channel of EKG were recorded using the International 10/20 system. CLINICAL DATA: The patient was referred for an EEG evaluation for the evidence of seizure disorder. MEDICATIONS: See the chart BACKGROUND ACTIVITY: While the patient was awake, the background activity consisted of well regulated 10 Hz rhythmic waveforms, symmetrically distributed over both posterior quadrants and was reactive to eye opening. ACTIVATION: Hyperventilation: Not done Photic Stimulation: No photic convulsive response Sleep: Not seen IMPRESSION: This is a normal EEG. No focal, lateralized, or epileptiform features are noted. If clinically indicated to rule out a seizure disorder, recommend repeat EEG with sleep deprivation. The EKG channel showed a regular heart rate of 78 per minute [place] [address] EXAMINATION: MRI BRAIN HEAD WO CONTRAST INDICATION: rule out stroke, episodes of seizures COMPARISON: CT head 02/17/2025 TECHNIQUE: Multiplanar, multisequence magnetic resonance imaging of the brain was performed without the use of intravenous contrast. FINDINGS: There is no restricted diffusion. There is moderate cerebral volume loss. There are mild chronic small-vessel white matter ischemic changes. There is no evidence of hemorrhage, mass, mass effect or midline shift. There is no hydrocephalus or extra-axial fluid collection. The visualized intracranial vasculature demonstrates appropriate flow-voids. The sagittal midline structures appear unremarkable. The craniocervical junction is within normal limits. The calvarium demonstrates normal marrow signal. The paranasal sinuses and mastoid air cells are clear. IMPRESSION: 1. There is no acute intracranial process. HS:Y Condition at Discharge: Stable Final Diagnosis/Problems List #Acute metabolic/toxic encephalopathy due to sepsis? #Possible episodic event of seizure #Stroke ruled out #Sepsis: Acute UTI #Hypertension? Discharge Disposition: Home Discharge Instruct/Medications Diet: Consistent carbohydrate, Cardiac 2g Na,low cholest Activity: No Restrictions, As Tolerated Follow Up/Referral: please tori appt with Dr Richter and pcp Medications: see prescirption Discharge Statement: "Patient was advised to return to the ER or call 911 if any headaches, dizziness, shortness of breath, chest pain, abdominal pain, bleeding, fevers, or worsening of medical condition. Patient was counseled about treatment plan, medications, possible side effects, patientverbalized understanding. All questions were answered to the best of my ability. This discharge took greater then 30 minutes in planning, reviewing documentation, counseling the patient, and discussing with other team members." ASSESSMENT ASSESSMENT Assessment acute metabolic encephalopathy Date of Service: Feb 18, 2025 Billing Provider: ROBERTA RUIZ MD Common Visit Codes: 65615-RMZ/OBS DISCH DAY >30min MONY WAITE RESIDENT Feb 18, 2025 12:00 ROBERTA RUIZ MD Feb 23, 2025 14:49
--- NOTE | 2025-02-18 22:32 | DVHEEG2 ---
Neurology EEG Procedural Note Procedural Note EXAM DATE: 02/18/2025 REFERRING DOCTOR: Dr. Silva TECHNIQUE: Eighteen channels of EEG, 2 channels of EOG, and 1 channel of EKG were recorded using the International 10/20 system. CLINICAL DATA: The patient was referred for an EEG evaluation for the evidence of seizure disorder. MEDICATIONS: See the chart BACKGROUND ACTIVITY: While the patient was awake, the background activity consisted of well regulated 10 Hz rhythmic waveforms, symmetrically distributed over both posterior quadrants and was reactive to eye opening. ACTIVATION: Hyperventilation: Not done Photic Stimulation: No photic convulsive response Sleep: Not seen IMPRESSION: This is a normal EEG. No focal, lateralized, or epileptiform features are noted. If clinically indicated to rule out a seizure disorder, recommend repeat EEG with sleep deprivation. The EKG channel showed a regular heart rate of 78 per [place] [address] AROLDO SILVA MD Feb 18, 2025 22:32
== END 2025-02-18 19:36 | disposition home or self-care (01) | DRG 871 ==
LOC: TELE-WESTW 02:23
PROVIDERS: ADMIT Student in an Organized Health Care Education/Training Program; ATTEND Student in an Organized Health Care Education/Training Program
DX: A41.9 Sepsis, unspecified organism (principal); G92.8 Other toxic encephalopathy; N39.0 Urinary tract infection, site not specified; G40.909 Epilepsy, unspecified, not intractable, without status epilepticus; G89.29 Other chronic pain; F17.200 Nicotine dependence, unspecified, uncomplicated; R26.9 Unspecified abnormalities of gait and mobility; E11.9 Type 2 diabetes mellitus without complications; E66.9 Obesity, unspecified; Z90.49 Acquired absence of other specified parts of digestive tract; Z82.1 Family history of blindness and visual loss; Z79.899 Other long term (current) drug therapy; Z68.33 Body mass index [BMI] 33.0-33.9, adult
CPT/HCPCS: 36415; 70450; 70551; 71045; 80053; 80061; 80307; 81001; 82140; 82746; 83036; 83605; 83880; 84439; 84443; 84484; 85025; 87426; 87804; 93005; 93306; 95819; 97163; G0378

== ENCOUNTER 2025-06-06 20:13 | Inpatient (IN) | payer MEDICAID, OTHER ==
[~2025-06-06] VITALS: Ht 157.5 cm; Wt 77.4 kg
[~2025-06-06 20:13] MED LIST changes: +ACET-1079 PO; -ACET500T58 PO; +DIPH25CA66 PO; +LEVO500T91 PO; -METH4TAB PO; -NIRM1TAB8 PO; -OSEL75CA5 PO
[2025-06-07] MEDS ORDERED: VANCOMYCIN 1GM/250ML KIT 250 ML IV ONE (03:00)
--- NOTE | 2025-06-07 03:02 | ED.PDOC ---
History of Present Illness(SKN HPI Comments 69-year-old female is brought in by ambulance from a boarding care facility for chief complaint of of rash with the associated itchiness, redness, and a pain to left side of her lower back for the last 8 days. Denial of any discharge, fever, chills, or further associated symptoms. REVIEW OF SYSTEMS: General: No fever, no chills, HEENT: No neck pain, no blurred vision Cardiac: No chest pain. No palpitations. Lungs: No shortness of breath, GI: No abdominal pain, no vomiting Musculoskeletal: No joint pain , no back pain Skin: Rash, with the associated itchiness, redness, and pain, no wound Neuro: No headache, no dizziness, no syncope PHYSICAL EXAM: General: Awake, alert and oriented. No acute distress. Skin: Since of area of erythema, warmth and tenderness over lower back HEENT: The head is normocephalic and atraumatic. Conjunctivae are clear without exudates or hemorrhage. Sclera is non-icteric. Neck: Normal range of motion. No JVD. Cardiac: Regular rate Respiratory: No signs of respiratory distress. No Stridor. Back: Extensive area of erythema, warmth, tenderness to lower back. Neurological: The patient is awake, alert and oriented to person, place, and time with normal speech. Speech is clear. There is no facial asymmetry. Psychiatric: Appropriate mood and affect. Good judgement and insight. Chief Complaint: Rash Time Seen by MD: 01:58 Primary Care Provider: UNKNOWN History of Present Illness: Nurses Notes, Ride Assembly Supervisor Notes, Medications, Allergies Allergies: Coded Allergies: Iodine (Verified Allergy, Unknown, 02/17/24) Home Meds Active Scripts Acetaminophen (Tylenol) 325 Mg Tb, 325 MG PO TID for 5 Days, #15 TAB Prov:MONY WAITE RESIDENT 02/18/25 Levofloxacin Hemihydrate (LEVAQUIN 500 MG) 500 Mg Tab, 500 MG PO DAILY for 5 Days, #5 TAB Prov:MONY WAITE RESIDENT 02/18/25 Reported Medications Diphenhydramine Hcl (Benadryl Allergy) 25 Mg Cap, 1 CAP PO QPM, #30 CAP 1 Refill 02/18/25 Information Source: Patient Mode of Arrival: EMS Past Medical History Surgical History: Appendectomy, Cholecystectomy 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 Was a procedure done?: No Differential Diagnosis (INTG) Differential Diagnosis: Abscess, Atopic dermatitis, Cellulitis, Contact Dermatitis, Erythema multiforme, Psoriasis, Rosacea, Scabies, Urticaria, Varicella, Viral exanthema X-Ray, Labs, Meds, VS Vital Signs Date Time Temp Pulse Resp B/P (MAP) Pulse Ox O2 Delivery O2 Flow Rate FiO2 06/06/25 20:13 98.6 109 16 179/91 95 98.6 Lab Test 06/07/25 03:33 Range/Units White Blood Count 13.2 H 4.4-10.8 10^3/uL Red Blood Count 5.76 H 4.0-5.20 10^6/uL Hemoglobin 16.4 H 12.2-16.2 g/dL Hematocrit 49.2 H 36.0-46.0 % Mean Corpuscular Volume 85.5 80.0-100.0 fL Mean Corpuscular Hemoglobin 28.5 28.0-32.0 pg Mean Corpuscular Hemoglobin Concent 33.3 32.0-36.0 g/dL Red Cell Distribution Width 14.1 11.8-14.3 % Platelet Count 312 140-450 10^3/uL Mean Platelet Volume 8.2 6.9-10.8 fL Neutrophils (%) (Auto) 65.6 37.0-80.0 % Lymphocytes (%) (Auto) 26.2 10.0-50.0 % Monocytes (%) (Auto) 5.3 0.0-12.0 % Eosinophils (%) (Auto) 2.3 0.0-7.0 % Basophils (%) (Auto) 0.6 0.0-2.0 % Neutrophils # (Auto) 8.6 1.6-8.6 10 ^3/uL Lymphocytes # (Auto) 3.4 0.4-5.4 10 ^3/uL Monocytes # (Auto) 0.7 0-1.3 10 ^3/uL Eosinophils # (Auto) 0.3 0-0.8 10 ^3/uL Basophils # (Auto) 0.1 0-0.2 10 ^3/uL Nucleated Red Blood Cells 0.0 % Prothrombin Time 11.4 9.3-11.8 sec Prothrombin Time INR 1.08 0.9-1.15 Activated Partial Thromboplast Time 31.8 24.5-34.5 SEC Sodium Level 140 136-145 mmol/L Potassium Level 4.0 3.5-5.1 mmol/L Chloride Level 106 98-107 mmol/L Carbon Dioxide Level 24 20-31 mmol/L Anion Gap 10 5-15 Blood Urea Nitrogen 12 9-23 mg/dL Creatinine 0.74 0.550-1.02 mg/dL Glomerular Filtration Rate Calc 86 >90 mL/min BUN/Creatinine Ratio 16.2 10.0-20.0 Serum Glucose 136 H 74-106 mg/dL Hemoglobin A1c 5.8 H <5.7 % A1C Lactic Acid Level 1.4 0.4-2.0 mmol/L Calcium Level 9.3 8.7-10.4 mg/dL Phosphorus Level 2.7 2.4-5.1 mg/dL Magnesium Level 1.8 1.6-2.6 mg/dL Total Bilirubin 0.4 0.2-1.0 mg/dL Direct Bilirubin 0.1 <0.3 mg/dL Aspartate Amino Transferase (AST) 23 13-40 U/L Alanine Aminotransferase (ALT) 19 7-40 U/L Alkaline Phosphatase 97 46-116 U/L Total Protein 8.0 5.7-8.2 g/dL Albumin 4.5 3.2-4.8 g/dL Vitamin B12 Level 437 211-911 pg/mL Vitamin D 25-Hydroxy 27.0 L 30.0-100 ng/mL Thyroid Stimulating Hormone (TSH) 2.03 0.55-4.78 uIU/mL Microbiology Date/Time Source Procedure Growth Status 06/07/25 03:33 Blood Blood Culture - Preliminary NO GROWTH AFTER 72 HOURS OF INCUBATION. Resulted 06/07/25 03:23 Blood Blood Culture - Preliminary NO GROWTH AFTER 72 HOURS OF INCUBATION. Resulted Time of 1ST Reevaluation: 02:28 Reevaluation 1ST: Unchanged Patient Education/Counseling: Other (Need for admission) Family Education/Counseling: No Family Present SEPSIS Sepsis Screen Date sepsis recognized/suspect: Jun 06, 2025 Time Sepsis recognized/suspect: 2012 Recent Procedure: No On Antibiotic Therapy: No Respiratory Rate >20: No Heart Rate >90: No Temp<36 C (96.8 F) or >38.3 C: No SBP <90 or MAP <65 mmHG: No New Acute Mental Status Change: No Is the patient on CPAP, BIPAP,: No Physician Orders Saline Lock (06/07/25 02:57) Blood Culture (06/07/25 02:57) Vital Signs Date Time Temp Pulse Resp B/P (MAP) Pulse Ox O2 Delivery O2 Flow Rate FiO2 06/06/25 20:13 98.6 109 16 179/91 95 98.6 Laboratory Tests Test 06/07/25 03:33 Lactic Acid Level 1.4 mmol/L (0.4-2.0) White Blood Count 13.2 10^3/uL (4.4-10.8) H Departure 1 Departure Time of Disposition: 02:59 Impression: Primary Impression: Cellulitis Disposition: ADMITTED INPATIENT Condition: Stable Comments 69-year-old female with cellulitis of the back Antibiotics initiated in the ED Patient admitted to hospitalist service for further treatment, evaluation and monitoring. Critical Care Note Critical Care Time?: No Stability Stability form required: No Heart Score Heart Score: Heart Score Response (Comments) Value History N/A 0 EKG N/A 0 Age N/A 0 Risk Factors N/A 0 Troponin N/A 0 Total 0 I personally scribed for NETTA GLASER MD ([email or web address]) on 06/07/25 at 05:32. Electronically submitted by Lawrence Maldonado ([email or web address]). NETTA GLASER MD Jun 07, 2025 03:02
[2025-06-07 03:45] LABS: Hematocrit 49.2 % (36.0-46.0); Hemoglobin 16.4 g/dL (12.2-16.2); Mean Corpuscular Hemoglobin 28.5 pg (28.0-32.0); Mean Corpuscular Volume 85.5 fL (80.0-100.0); Nucleated Red Blood Cells % 0.0 %
[2025-06-07 03:55] LABS: Chloride 106 mmol/L (98-107); Potassium 4.0 mmol/L (3.5-5.1); Sodium 140 mmol/L (136-145)
[2025-06-07 03:56] LABS: Anion Gap 10 (5-15); Carbon Dioxide 24 mmol/L (20-31)
[2025-06-07 03:57] LABS: Calcium 9.3 mg/dL (8.7-10.4)
[2025-06-07 04:02] LABS: BUN/Creatinine Ratio 16.2 (10.0-20.0); Blood Urea Nitrogen 12 mg/dL (9-23); Glucose 136 mg/dL (74-106)
[2025-06-07 05:26] LABS: Magnesium 1.8 mg/dL (1.6-2.6)
[2025-06-07] MEDS ORDERED: DEXTROSE (50%) 50ML SYRG IV PRN (05:30)
[2025-06-07] MEDS: LISINOPRIL 5 MG TAB PO ONE (05:30)
[2025-06-07] MEDS ORDERED: VANCOMYCIN PER PHARMACY 0 MG IV SCH (05:30)
[2025-06-07 05:31] LABS: INR 1.08 (0.9-1.15); Partial Thromboplastin Time 31.8 SEC (24.5-34.5); Prothrombin Time 11.4 sec (9.3-11.8)
[2025-06-07 05:50] LABS: Alanine Aminotransferase 19.0 U/L (7-40); Albumin 4.5 g/dL (3.2-4.8); Alkaline Phosphatase 97.0 U/L (46-116); Bilirubin, Total 0.4 mg/dL (0.2-1.0); Total Protein 8.0 g/dL (5.7-8.2)
--- NOTE | 2025-06-07 05:58 | DVH ---
CHEST RADIOGRAPH Indication: Sepsis, rule out PNA Technique: Single frontal view of the chest was obtained COMPARISON: XY CHEST XRAY 1 VIEW on DOS: 02/17/25, XY CHEST TWO VIEWS ROUTINE on DOS: 09/14/24, XY CHES T XRAY 1 VIEW on DOS: 02/17/24 FINDINGS: Lines and Tubes: None Lungs: Clear Pleura: No effusion. No pneumothorax. Cardiomediastinal contours: Unremarkable Bones: Unremarkable IMPRESSION: 1. No acute disease.
--- NOTE | 2025-06-07 05:59 | DVHHPRES ---
History of Present Illness Resident Creating Document: RUSLAN CABALLERO RESIDENT History of Present Illness Ms. Hyde is a 69-year-old female with prior medical history of type 2 diabetes mellitus and recurrent UTIs, who presents to the ED today with chief complaint of skin rash. The patient states that approximately 2 days ago she had a spontaneous appearance of a erythematous and dry rash on her lower back associated with intense pruritus. Additionally, had appearance of said rash under both armpits. She states she utilized A&D lotion, with minimal relief. Denies fever, nausea, vomiting, bleeding of the skin, appearance of vesicles, purulent discharge, sick contacts and other symptoms. Additionally, refers mild dysuria when urinating. On evaluation in the ED, she was afebrile, tachycardic, and hypertensive. Initial labs show WBCs 13.2, hemoglobin 16.4, and chemical plan within normal range. Patient was admitted for further workup and management. Endocrine: Diabetes Past Surgical History: Appendectomy, Cholecystectomy, Other (Tendon repair in left calf) Smoke: Quit (Smoked 3-5 packs a day for 5 years, quit approximately 10 years ago) ALCOHOL: none Drugs: Marijuana (States she utilized marijuana once a week for many years, quit approximately 5 years ago) Lives: Roommate Domestic Violence: Neg Review of Systems Review of Systems Constitutional: Denies weight loss, fever and chills. HEENT: Denies changes in vision and hearing. Respiratory: Denies shortness of breath and cough Cardiovascular: Denies chest discomfort or palpitations GI: Denies abdominal distention, abdominal pain, diarrhea : Refers dysuria Musculoskeletal: Denies symptoms Skin: Refers rash on lower back and under both armpits, refers extreme pruritus Neurological: denies dizziness headache vision or hearing problems Allergies: Coded Allergies: Iodine (Verified Allergy, Unknown, 02/17/24) Medications Current Medications Medications Dose Ordered Sig/Fermín Route Start Time Stop Time Status Last Admin Dose Admin Diagnostic Test (Pha) 1 strip ACHS 06/07/25 07:00 Insulin Human Regular ACHS SC 06/07/25 07:00 Dextrose 50 ml UD PRN IV 06/07/25 05:30 Sodium Chloride 1,000 ml @ 75 mls/hr [id number] IV 06/07/25 05:30 Vancomycin HCl 0 ml @ 0 mls/hr UD IV 06/07/25 05:30 UNV Clotrimazole 1 applic Q12HR TOP 06/07/25 22:00 Diphenhydramine HCl 25 mg Q4HP PRN IV 06/07/25 05:30 Enoxaparin Sodium 40 mg DAILY SC 06/07/25 10:00 Lisinopril 2.5 mg DAILY PO 06/08/25 10:00 Ceftriaxone Sodium 50 ml @ 100 mls/hr DAILY@0300 IV 06/08/25 03:00 Exam Vital Signs Vital Signs Date Time Temp Pulse Resp B/P (MAP) Pulse Ox O2 Delivery O2 Flow Rate FiO2 06/06/25 20:13 98.6 109 16 179/91 95 98.6 Exam General: The patient alert and oriented in person place and time. Patient following commands HEENT: Normocephalic, atraumatic, normal reactive pupils, EOM intact, pink conjunctiva, pink moist mucous membrane Respiratory/pulmonary: Bilateral chest expansion, Clear lungs bilaterally, vesicular murmurs present in almost all lung camilo, no associated crackles or wheezes. Cardiovascular: Normal RRR, normal S1 and S2, no murmurs Abdomen: Abdomen nondistended, normal bowel sounds, soft, there is no pain to palpation in any of the abdominal quadrants, no palpable masses. Extremities: No deformities, there is no peripheral edema present at the lower extremities, pulses are present Skin: Presence of dry erythematous rash in lower back covered by excoriations, presence of thick erythematous patches bilateral axilla with clear demarcation, worse on the right than the left Neurological: Intact cranial nerves with no focal neurologic deficits Labs/Xrays Labs Test 06/07/25 03:33 Range/Units White Blood Count 13.2 H 4.4-10.8 10^3/uL Red Blood Count 5.76 H 4.0-5.20 10^6/uL Hemoglobin 16.4 H 12.2-16.2 g/dL Hematocrit 49.2 H 36.0-46.0 % Mean Corpuscular Volume 85.5 80.0-100.0 fL Mean Corpuscular Hemoglobin 28.5 28.0-32.0 pg Mean Corpuscular Hemoglobin Concent 33.3 32.0-36.0 g/dL Red Cell Distribution Width 14.1 11.8-14.3 % Platelet Count 312 140-450 10^3/uL Mean Platelet Volume 8.2 6.9-10.8 fL Neutrophils (%) (Auto) 65.6 37.0-80.0 % Lymphocytes (%) (Auto) 26.2 10.0-50.0 % Monocytes (%) (Auto) 5.3 0.0-12.0 % Eosinophils (%) (Auto) 2.3 0.0-7.0 % Basophils (%) (Auto) 0.6 0.0-2.0 % Neutrophils # (Auto) 8.6 1.6-8.6 10 ^3/uL Lymphocytes # (Auto) 3.4 0.4-5.4 10 ^3/uL Monocytes # (Auto) 0.7 0-1.3 10 ^3/uL Eosinophils # (Auto) 0.3 0-0.8 10 ^3/uL Basophils # (Auto) 0.1 0-0.2 10 ^3/uL Nucleated Red Blood Cells 0.0 % Prothrombin Time 11.4 9.3-11.8 sec Prothrombin Time INR 1.08 0.9-1.15 Activated Partial Thromboplast Time 31.8 24.5-34.5 SEC Sodium Level 140 136-145 mmol/L Potassium Level 4.0 3.5-5.1 mmol/L Chloride Level 106 98-107 mmol/L Carbon Dioxide Level 24 20-31 mmol/L Anion Gap 10 5-15 Blood Urea Nitrogen 12 9-23 mg/dL Creatinine 0.74 0.550-1.02 mg/dL Glomerular Filtration Rate Calc 86 >90 mL/min BUN/Creatinine Ratio 16.2 10.0-20.0 Serum Glucose 136 H 74-106 mg/dL Hemoglobin A1c 5.8 H <5.7 % A1C Calcium Level 9.3 8.7-10.4 mg/dL Magnesium Level 1.8 1.6-2.6 mg/dL SEPSIS Sepsis Screen Date sepsis recognized/suspect: Jun 06, 2025 Time Sepsis recognized/suspect: 2012 Recent Procedure: No On Antibiotic Therapy: No Respiratory Rate >20: No Heart Rate >90: No Temp<36 C (96.8 F) or >38.3 C: No SBP <90 or MAP <65 mmHG: No New Acute Mental Status Change: No Is the patient on CPAP, BIPAP,: No Physician Orders Saline Lock (06/07/25 02:57) Blood Culture (06/07/25 02:57) Wound Culture W/ Gs (06/07/25 02:57) PTPTT (06/07/25 05:00) Magnesium (06/07/25 05:00) Phosphorus (06/07/25 05:00) Lactic Acid W/ Reflex Order (06/07/25 05:00) Thyroid Stimulating Hormone (06/07/25 05:00) Vitamin B12 (06/07/25 05:00) Vitamin D, 25-Hydroxy (06/07/25 05:00) Urinalysis (06/07/25 05:00) Drug Screen (06/07/25 05:00) Code Status (06/07/25 05:21) Vital Signs .PER UNIT PROTOCOL (06/07/25 05:21) Review Orders With Adm.Md (06/07/25 05:21) Notify Md Of Changes From Base (06/07/25 05:21) Advance Directive (06/07/25 05:21) Patient Condition (06/07/25 05:21) Allergies (06/07/25 05:21) Stat Ekg For Chest Pain (06/07/25 05:21) Notify Md Of Changes From Base (06/07/25 05:21) Emergency Dysrhythmia Protocol (06/07/25 05:21) Rhythm Strips Once Every Shift (06/07/25 05:21) Hepatic Panel (06/07/25 05:23) Chest Xray 1 View (06/07/25 05:23) Urine Bacterial Culture (06/07/25 05:23) Glucose Blood (Accu-Chek Comfort Curve T (06/07/25 07:00) Insulin R (Human) (Insulin R) (06/07/25 07:00) Dextrose 50% Syringe (06/07/25 05:30) Sodium Chloride 0.9% (06/07/25 05:30) Sodium Chloride 0.9% (06/07/25 05:30) Vancomycin Per Pharmacy (06/07/25 05:30) Clotrimazole 1% Topical Cream (Lotrimin (06/07/25 22:00) Diphenhdramine Injection (Benadryl Injec (06/07/25 05:30) Enoxaparin Sodium (Lovenox) (06/07/25 10:00) Lisinopril Tablet (Zestril Tablet) (06/08/25 10:00) Admit (06/07/25 05:35) Ceftriaxone 1gm/50ml (Rocephin) (06/08/25 03:00) Laboratory Tests Test 06/07/25 03:33 Lactic Acid Level Pending White Blood Count 13.2 10^3/uL (4.4-10.8) H Assessment/Plan Assessment/Plan Assessment and plan: Sepsis secondary to UTI - Ceftriaxone 1 g IV daily - Urine analysis and culture ordered: Pending - blood cultures ordered: pending - NS 1000 cc bolus and maintenance 75 cc/hour Cutaneous dermatophyte infection - Wound cultures ordered - Clotrimazole 1% topical cream to be applied q.12 hours - Diphenhydramine 25 mg IV q4 hrs - Wound Care was consulted Possible bacterial superinfection of cutaneous fungal infection - Vancomycin IV per pharmacy protocol - Wound cultures ordered Type 2 diabetes mellitus -Mild SSI -Accu-cheks -Consistent carbohydrate diet Hypertension -Lisinopril 2.5 mg PO daily Diet: Consistent carbohydrate diet GI prophylaxis: Not indicated DVT prophylaxis: Lovenox 40 mg SC daily Case discussed with Dr. Sims Goals of care discussed with the patient for over 23 minutes. FULL CODE. Plan discussed with: Patient, Other (Nurses) My Orders Orders - RUSLAN CABALLERO RESIDENT Procedure Category Date Status Time PTPTT LAB 06/07/25 In Process 05:00 Magnesium LAB 06/07/25 In Process 05:00 Phosphorus LAB 06/07/25 In Process 05:00 Lactic Acid W/ Reflex LAB 06/07/25 In Process Order 05:00 Thyroid Stimulating LAB 06/07/25 In Process Hormone 05:00 Vitamin B12 LAB 06/07/25 In Process 05:00 Vitamin D, 25-Hydroxy LAB 06/07/25 In Process 05:00 Urinalysis LAB 06/07/25 Logged 05:00 Drug Screen LAB 06/07/25 Logged 05:00 Code Status CODE 06/07/25 Transmitted 05:21 Vital Signs JOHN 06/07/25 In Process 05:21 Review Orders With JOHN 06/07/25 In Process Adm. 05:21 Notify Of Changes JOHN 06/07/25 In Process From Base 05:21 Advance Directive JOHN 06/07/25 In Process 05:21 Patient Condition ORDERS 06/07/25 Transmitted 05:[address] [facility] 06/07/25 In Process 05:21 Stat Ekg For Chest [facility] 06/07/25 In Process Pain 05:21 Notify Md Of Changes [facility] 06/07/25 In Process From Base 05:21 Emergency Dysrhythmia [facility] 06/07/25 In Process Protocol 05:21 Rhythm Strips Once [facility] 06/07/25 In Process Every Shift 05:21 Admit ADMIT 06/07/25 Transmitted 05:35 Date of Service: Jun 06, 2025 Billing Provider: NATO SIMS MD Common Visit Codes: [id number] INP/OBS CARE (HIGH) Secondary Visit Codes: [id number] CARE PLAN 30 MINUTES RUSLAN CABALLERO RESIDENT Jun 07, 2025 05:59 KAYLEE CONLEY RESIDENT Jun 07, 2025 06:04 NATO SIMS MD Jun 07, 2025 13:32
[2025-06-07] MEDS: VITAMINS A & D (TOPICAL) OINT 5GM TOP ONE (06:15)
[2025-06-07 06:39] LABS: Bilirubin, Direct 0.1 mg/dL (<0.3)
[2025-06-07] MEDS: InsuLIN REG 1unit/0.01ml Soln (100units/ml) SC SCH (07:00)
[2025-06-07] MEDS: ACCU-CHEK COMFORT CURVE STRIP VI SCH (07:00)
[2025-06-07 10:40] VITALS: PULSE 91; RESP 20; O2SAT 98
[2025-06-07] MEDS: SODIUM CHLORIDE 0.9% 1,000 ML IV ONE (10:45)
[2025-06-07] MEDS: SODIUM CHLORIDE 0.9% 1,000 ML IV SCH (10:45)
[2025-06-07] MEDS: CLOTRIMAZOLE 1 % CREAM 15GM TOP ONE (10:51)
[2025-06-07] MEDS: ENOXAPARIN SOD 40 MG/0.4 ML SYRINGE SC SCH (10:52)
[2025-06-07] MEDS: VANCOMYCIN 1.75GM/350ML 350 ML IV ONE (11:32)
[2025-06-07] MEDS: diphenhdrAMINE HCL 50 MG/1 ML VL IV PRN (12:03)
[2025-06-07] MEDS: diphenhdrAMINE HCL 50 MG/1 ML VL IV ONE (12:55)
--- NOTE | 2025-06-07 15:16 | DVHPN2 ---
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 General Appearance: Alert, Oriented X3, Cooperative HEENT: Atraumatic Lungs: Clear to auscultation, Normal air movement Cardiovascular: Regular rate, Normal S1, Normal S2, No murmurs Abdomen: Normal bowel sounds, Soft, No tenderness Extremities: No edema Neuro: Normal speech, Cranial nerves 3-12 NL Skin: Other (Multiple skin lesions with erythema/crusts/scales ) Psych/Mental Status: Mental status NL, Mood NL Medications Current Medications Medications Dose Ordered Sig/Fermín Route Start Time Stop Time Status Last Admin Dose Admin Diagnostic Test (Pha) 1 strip ACHS 06/07/25 07:00 06/07/25 11:31 1 STRIP Insulin Human Regular ACHS SC 06/07/25 07:00 Dextrose 50 ml UD PRN IV 06/07/25 05:30 Sodium Chloride 1,000 ml @ 75 mls/hr [id number] IV 06/07/25 05:30 06/07/25 10:45 75 MLS/HR Vancomycin HCl 0 ml @ 0 mls/hr UD IV 06/07/25 05:30 Clotrimazole 1 applic Q12HR TOP 06/07/25 22:00 Diphenhydramine HCl 25 mg Q4HP PRN IV 06/07/25 05:30 06/07/25 12:03 25 MG Enoxaparin Sodium 40 mg DAILY SC 06/07/25 10:00 06/07/25 10:52 40 MG Lisinopril 2.5 mg DAILY PO 06/08/25 10:00 Ceftriaxone Sodium 50 ml @ 100 mls/hr DAILY@0300 IV 06/08/25 03:00 Vitamin A/Vitamin D 5 gm DAILYP PRN TOP 06/08/25 06:00 Vancomycin HCl 250 ml @ 250 mls/hr Q12H IV 06/07/25 23:00 Laboratory Results Laboratory Tests 06/07/25 03:33 Chemistry Test 06/07/25 03:33 Albumin 4.5 g/dL (3.2-4.8) Calcium Level 9.3 mg/dL (8.7-10.4) Magnesium Level 1.8 mg/dL (1.6-2.6) Phosphorus Level 2.7 mg/dL (2.4-5.1) Total Protein 8.0 g/dL (5.7-8.2) Coagulation Test 06/07/25 03:33 Prothrombin Time 11.4 sec (9.3-11.8) Prothrombin Time INR 1.08 (0.9-1.15) Activated Partial Thromboplast Time 31.8 SEC (24.5-34.5) LFT Test 06/07/25 03:33 Alanine Aminotransferase (ALT) 19 U/L (7-40) Alkaline Phosphatase 97 U/L (46-116) Aspartate Amino Transferase (AST) 23 U/L (13-40) Direct Bilirubin 0.1 mg/dL (<0.3) Total Bilirubin 0.4 mg/dL (0.2-1.0) HgA1c, TSH Test 06/07/25 03:33 Hemoglobin A1c 5.8 % A1C (<5.7) H Thyroid Stimulating Hormone (TSH) 2.03 uIU/mL (0.55-4.78) Labs and/or images reviewed: Labs reviewed by me, Image(s) reviewed by me Assessment/Plan Assessment/Plan Covering: Sepsis with leukocytosis secondary to suspected bacterial infection of cutaneous fungal infection Suspected KIM in the setting of sepsis; most likely vasomotor nephropathy Cutaneous dermatophyte infection Diabetes mellitus, type 2 Hypertensive heart disease without heart failure Urine incontinence; failed multiple interventions; using diapers Vitamin-D deficiency; to treat as outpatient Obesity Reviewed the available lab work and imaging studies Continue insulin management and adjust according to blood glucose monitoring Counseled the patient on importance of adopting healthy lifestyle with diet and exercise in order to lose weight Continue antihypertensive medication and adjust according to blood pressure monitoring Continue topical steroid cream for itching Continue topical antifungal powder Pending wound and urine cultures Blood culture with no growth so far Wound care consulted Continue IV antibiotics Avoid nephrotoxic agents Continue monitoring Goals of care discussed with the patient for 20 minutes; full code Late Entry. This medical document was created using an electronic medical record system with computerized dictation system. Although this document has been carefully reviewed, there might still be some phonetic and typographical errors. These areas are purely typographical due to imperfections of the software programs, and do not reflect any compromise in the patient's medical care. Plan discussed with: Patient, Other (Nurse) Date of Service: Jun 07, 2025 Billing Provider: TRISTAN HASTINGS MD Common Visit Codes: [id number] INP/OBS CARE(HIGH) Secondary Visit Codes: [id number] CARE PLAN 30 MINUTES (20 minutes) TRISTAN HASTINGS MD Jun 07, 2025 15:16
[2025-06-07 15:30] VITALS: PULSE 103; RESP 20; O2SAT 98
[2025-06-07] MEDS: CLOTRIMAZOLE 1 % CREAM 15GM TOP SCH (22:00)
[2025-06-07] MEDS: NYSTATIN TOPICAL POWDER 15GM TOP SCH (22:00)
[2025-06-07 23:31] VITALS: BP 123/58; PULSE 108; RESP 18; TEMP 98.4; O2SAT 96
[2025-06-08] MEDS: VANCOMYCIN 1GM/250ML KIT 250 ML IV SCH (02:30)
[2025-06-08 05:00] VITALS: BP 124/67; PULSE 89; RESP 17; TEMP 97.6; O2SAT 98
[2025-06-08] MEDS ORDERED: VITAMINS A & D (TOPICAL) OINT 5GM TOP PRN (06:00)
[2025-06-08 07:31] LABS: Anion Gap 9 (5-15); Carbon Dioxide 21 mmol/L (20-31); Potassium 3.8 mmol/L (3.5-5.1); Sodium 141 mmol/L (136-145)
[2025-06-08 07:34] LABS: Calcium 8.4 mg/dL (8.7-10.4); Chloride 111 mmol/L (98-107)
[2025-06-08 07:35] LABS: Hematocrit 40.4 % (36.0-46.0); Hemoglobin 13.5 g/dL (12.2-16.2); Mean Corpuscular Hemoglobin 28.9 pg (28.0-32.0); Mean Corpuscular Volume 86.6 fL (80.0-100.0); Nucleated Red Blood Cells % 0.1 %
[2025-06-08 07:37] LABS: BUN/Creatinine Ratio 12.9 (10.0-20.0); Glucose 88 mg/dL (74-106)
[2025-06-08 07:40] LABS: Blood Urea Nitrogen 8 mg/dL (9-23)
[2025-06-08 08:34] VITALS: BP 135/71; PULSE 51; RESP 16; TEMP 97.5; O2SAT 98
[2025-06-08] MEDS: LISINOPRIL 5 MG TAB PO SCH (10:35)
[2025-06-08 13:00] VITALS: BP 117/51; PULSE 76; RESP 14; TEMP 97.8; O2SAT 99
[2025-06-08 16:43] VITALS: BP 104/55; PULSE 88; RESP 16; TEMP 97.9; O2SAT 98
--- NOTE | 2025-06-08 17:07 | DVHPN2 ---
Subjective Pleasant female in bed without distress. Alert awake oriented x3. No complaints. Reviewed: Care Plan, H&P, Labs, Medications, Previous Orders, Radiology Changes from previous H/P or p: No Changes Objective Vitals Vital Signs Date Time Temp Pulse Resp B/P (MAP) Pulse Ox O2 Delivery O2 Flow Rate FiO2 06/08/25 16:43 97.9 88 16 104/55 (71) 98 97.9 06/08/25 08:00 Room Air* 0 21 Intake/Output Intake and Output 06/08/25 07:00 Intake Total 1700 ml Balance 1700 ml Intake Oral 0 ml IV Total 1700 ml # Voids 2 General Appearance: Alert, Oriented X3, Cooperative HEENT: Atraumatic Lungs: Clear to auscultation, Normal air movement Cardiovascular: Regular rate, Normal S1, Normal S2, No murmurs Abdomen: Normal bowel sounds, Soft, No tenderness Extremities: No edema Neuro: Normal speech, Cranial nerves 3-12 NL Skin: Other (Multiple skin lesions with erythema/crusts/scales ) Psych/Mental Status: Mental status NL, Mood NL Medications Current Medications Medications Dose Ordered Sig/Fermín Route Start Time Stop Time Status Last Admin Dose Admin Diagnostic Test (Pha) 1 strip ACHS 06/07/25 07:00 06/08/25 05:47 1 STRIP Insulin Human Regular ACHS SC 06/07/25 07:00 Dextrose 50 ml UD PRN IV 06/07/25 05:30 Sodium Chloride 1,000 ml @ 75 mls/hr [id number] IV 06/07/25 05:30 06/08/25 08:10 75 MLS/HR Vancomycin HCl 0 ml @ 0 mls/hr UD IV 06/07/25 05:30 Clotrimazole 1 applic Q12HR TOP 06/07/25 22:00 06/08/25 10:00 1 APPLIC Diphenhydramine HCl 25 mg Q4HP PRN IV 06/07/25 05:30 06/07/25 12:03 25 MG Enoxaparin Sodium 40 mg DAILY SC 06/07/25 10:00 06/08/25 10:35 40 MG Lisinopril 2.5 mg DAILY PO 06/08/25 10:00 06/08/25 10:35 2.5 MG Ceftriaxone Sodium 50 ml @ 100 mls/hr DAILY@0300 IV 06/08/25 03:00 06/08/25 03:43 100 MLS/HR Vitamin A/Vitamin D 5 gm DAILYP PRN TOP 06/08/25 06:00 Vancomycin HCl 250 ml @ 250 mls/hr Q12H IV 06/07/25 23:00 06/08/25 10:48 250 MLS/HR Nystatin 1 applic BID TOP 06/07/25 22:00 Laboratory Results Laboratory Tests 06/08/25 06:01 Chemistry Test 06/08/25 06:01 Calcium Level 8.4 mg/dL (8.7-10.4) L Microbiology Microbiology Date/Time Source Procedure Growth Status 06/07/25 03:33 Blood Blood Culture - Preliminary NO GROWTH AFTER 24 HOURS OF INCUBATION. Resulted Assessment/Plan Assessment/Plan Cutaneous dermatophyte infection - Wound cultures ordered - Clotrimazole 1% topical cream to be applied q.12 hours - Diphenhydramine 25 mg IV q4 hrs - Wound Care was consulted Possible bacterial superinfection of cutaneous fungal infection - Vancomycin IV per pharmacy protocol - Wound cultures ordered Type 2 diabetes mellitus -Mild SSI -Accu-cheks -Consistent carbohydrate diet Hypertension -Lisinopril 2.5 mg PO daily Urinalysis not done. Blood cultures are negative for any bacteremia. No evidence of sepsis at present. Continue current antibiotics for possible cutaneous fungal infection. We will get a echocardiogram to assess heart failure given her obesity with mild leg swelling. Encouraged activity. Otherwise continue rest of supportive care and treatment. Follow clinical management per clinical course. Discussed with the patient regarding care plan at bedside. Plan discussed with: Patient My Orders Orders - ANGÉLICA LANDA MD Procedure Category Date Status Time Urinalysis LAB 06/08/25 Logged 16:59 Basic Metabolic Panel LAB 06/09/25 Verified 04:00 Complete Blood Count LAB 06/09/25 Verified 04:00 Pt Request For Service PT 06/08/25 Logged 16:59 * Business Process Coordinator CONS 06/08/25 Transmitted Consult Echo 2d Mode Cardiac US 06/08/25 Logged DOP 16:59 Date of Service: Jun 08, 2025 Billing Provider: ANGÉLICA LANDA MD Common Visit Codes: [id number] INP/OBS CARE(MOD) ANGÉLICA LANDA MD Jun 08, 2025 17:07
[2025-06-08] MEDS: FLUCONAZOLE 200MG/100ML 100 ML IV ONE (17:15)
[2025-06-08 20:00] VITALS: RESP 16
[2025-06-08 21:00] VITALS: BP 106/47; PULSE 79; RESP 17; TEMP 97.5; O2SAT 96
[2025-06-09] VITALS (7 sets, daily range): BP systolic 94–141; BP diastolic 52–75; PULSE 61–80; RESP 16–18; TEMP 97.6–98.4; O2SAT 95–98
[2025-06-09 05:26] LABS: Hematocrit 37.0 % (36.0-46.0); Hemoglobin 12.4 g/dL (12.2-16.2); Mean Corpuscular Hemoglobin 28.7 pg (28.0-32.0); Mean Corpuscular Volume 85.7 fL (80.0-100.0); Nucleated Red Blood Cells % 0.1 %
[2025-06-09 05:35] LABS: Potassium 3.8 mmol/L (3.5-5.1); Sodium 139 mmol/L (136-145)
[2025-06-09 05:36] LABS: Anion Gap 10 (5-15); Carbon Dioxide 22 mmol/L (20-31)
[2025-06-09 05:38] LABS: Calcium 8.4 mg/dL (8.7-10.4); Chloride 107 mmol/L (98-107)
[2025-06-09 05:41] LABS: BUN/Creatinine Ratio 16.1 (10.0-20.0); Blood Urea Nitrogen 10 mg/dL (9-23); Glucose 139 mg/dL (74-106)
[2025-06-09] MEDS: FLUCONAZOLE 200MG/100ML 100 ML IV SCH (10:18)
--- NOTE | 2025-06-09 16:50 | DVHPN2 ---
Subjective Complains of peripheral neuropathy. Apparently she was on gabapentin in seemed to help her. Says tramadol helps her. Still urine culture and urinalysis not sent. Reviewed: Care Plan, H&P, Labs, Medications, Previous Orders, Radiology Changes from previous H/P or p: No Changes Objective Vitals Vital Signs Date Time Temp Pulse Resp B/P (MAP) Pulse Ox O2 Delivery O2 Flow Rate FiO2 06/09/25 13:00 97.9 75 18 129/72 (91) 97 97.9 06/09/25 08:00 Room Air* 0 21 Intake/Output Intake and Output 06/09/25 07:00 Intake Total 1250 ml Output Total 500 ml Balance 750 ml Intake Oral 1000 ml IV Total 250 ml Output Urine Total 500 ml # Voids 2 General Appearance: Alert, Oriented X3, Cooperative HEENT: Atraumatic Lungs: Clear to auscultation, Normal air movement Cardiovascular: Regular rate, Normal S1, Normal S2, No murmurs Abdomen: Normal bowel sounds, Soft, No tenderness Extremities: No edema Neuro: Normal speech, Cranial nerves 3-12 NL Skin: Other (Multiple skin lesions with erythema/crusts/scales ) Psych/Mental Status: Mental status NL, Mood NL Medications Current Medications Medications Dose Ordered Sig/Fermín Route Start Time Stop Time Status Last Admin Dose Admin Diagnostic Test (Pha) 1 strip ACHS 06/07/25 07:00 06/08/25 05:47 1 STRIP Insulin Human Regular ACHS SC 06/07/25 07:00 Dextrose 50 ml UD PRN IV 06/07/25 05:30 Sodium Chloride 1,000 ml @ 75 mls/hr [id number] IV 06/07/25 05:30 06/09/25 10:50 75 MLS/HR Vancomycin HCl 0 ml @ 0 mls/hr UD IV 06/07/25 05:30 Clotrimazole 1 applic Q12HR TOP 06/07/25 22:00 06/09/25 10:00 1 APPLIC Diphenhydramine HCl 25 mg Q4HP PRN IV 06/07/25 05:30 06/07/25 12:03 25 MG Enoxaparin Sodium 40 mg DAILY SC 06/07/25 10:00 06/09/25 10:14 40 MG Lisinopril 2.5 mg DAILY PO 06/08/25 10:00 06/09/25 10:18 2.5 MG Ceftriaxone Sodium 50 ml @ 100 mls/hr DAILY@0300 IV 06/08/25 03:00 06/09/25 04:18 100 MLS/HR Vitamin A/Vitamin D 5 gm DAILYP PRN TOP 06/08/25 06:00 Vancomycin HCl 250 ml @ 250 mls/hr Q12H IV 06/07/25 23:00 06/09/25 11:00 250 MLS/HR Nystatin 1 applic BID TOP 06/07/25 22:00 06/09/25 10:18 1 APPLIC Fluconazole 100 ml @ 100 mls/hr DAILY IV 06/09/25 10:00 06/09/25 10:18 100 MLS/HR Tramadol HCl 50 mg Q8HPRN PRN PO 06/09/25 11:45 06/09/25 12:03 50 MG Laboratory Results Laboratory Tests 06/09/25 04:53 Chemistry Test 06/09/25 04:53 Calcium Level 8.4 mg/dL (8.7-10.4) L Microbiology Microbiology Date/Time Source Procedure Growth Status 06/07/25 03:33 Blood Blood Culture - Preliminary NO GROWTH AFTER 48 HOURS OF INCUBATION. Resulted Assessment/Plan Assessment/Plan Cutaneous dermatophyte infection - Wound cultures ordered - Clotrimazole 1% topical cream to be applied q.12 hours - Diphenhydramine 25 mg IV q4 hrs - Wound Care was consulted Possible bacterial superinfection of cutaneous fungal infection - Vancomycin IV per pharmacy protocol - Wound cultures ordered Type 2 diabetes mellitus -Mild SSI -Accu-cheks -Consistent carbohydrate diet Hypertension -Lisinopril 2.5 mg PO daily Urinalysis not done. Blood cultures are negative for any bacteremia. No evidence of sepsis at present. Continue current antibiotics for possible cutaneous fungal infection. We will get a echocardiogram to assess heart failure given her obesity with mild leg swelling. Encouraged activity. Otherwise continue rest of supportive care and treatment. Follow clinical management per clinical course. Discussed with the patient regarding care plan at bedside. 06/09/25 Continue current antibiotics and medications. Today we will straight cath her and obtain UA and urine culture. Meantime continue physical therapy. I will add Lyrica for her peripheral neuropathy and pain control. Patient would benefit from going to long-term facility. Discussed with the patient and nurse regarding care plan. Plan discussed with: Patient My Orders Orders - GANAPAVARAPU,ANGÉLICA MD Procedure Category Date Status Time Pt Request For Service PT 06/08/25 Logged 16:59 * Press Catcher CONS 06/08/25 Transmitted Consult Echo 2d Mode Cardiac US 06/08/25 Logged DOP 16:59 Fluconazole PHA 06/09/25 In Process 200mg/100ml (Diflucan 10:00 Tramadol Hcl (Ultram) PHA 06/09/25 In Process 11:45 Pregabalin Capsule PHA 06/09/25 Logged (Lyrica Capsule) 22:00 * Press Catcher CONS 06/09/25 Transmitted Consult Date of Service: Jun 09, 2025 Billing Provider: ANGÉLICA LANDA MD Common Visit Codes: [id number] INP/OBS CARE(MOD) ANGÉLICA LANDA MD Jun 09, 2025 16:50
[2025-06-09 20:08] LABS: Urine Protein, UAD Negative (Negative)
[2025-06-09] MEDS: PREGABALIN 25 MG CAP PO SCH (20:36)
[2025-06-10 05:00] VITALS: BP 120/63; PULSE 68; RESP 18; TEMP 98.4; O2SAT 96
[2025-06-10 07:38] LABS: Hematocrit 38.6 % (36.0-46.0); Hemoglobin 12.9 g/dL (12.2-16.2); Mean Corpuscular Hemoglobin 28.2 pg (28.0-32.0); Mean Corpuscular Volume 84.5 fL (80.0-100.0); Nucleated Red Blood Cells % 0.0 %
[2025-06-10 08:00] VITALS: PULSE 66; RESP 17; O2SAT 97
[2025-06-10 08:37] VITALS: BP 109/70; PULSE 66; RESP 17; TEMP 97.7; O2SAT 97
--- NOTE | 2025-06-10 10:35 | DVHPN2 ---
Subjective The patient is seen and examined at bedside. Stated that she feels little bit better. Reviewed: Care Plan, H&P, Labs, Medications, Previous Orders, Radiology Changes from previous H/P or p: No Changes Objective Vitals Vital Signs Date Time Temp Pulse Resp B/P (MAP) Pulse Ox O2 Delivery O2 Flow Rate FiO2 06/10/25 09:47 109/70 06/10/25 08:37 97.7 66 17 97 97.7 06/09/25 20:00 Room Air* 0 21 Intake/Output Intake and Output 06/10/25 07:00 Intake Total 1300 ml Balance 1300 ml Intake Oral 950 ml IV Total 350 ml # Voids 7 # Bowel Movements 1 General Appearance: Alert, Oriented X3, Cooperative HEENT: Atraumatic Lungs: Clear to auscultation, Normal air movement Cardiovascular: Regular rate, Normal S1, Normal S2, No murmurs Abdomen: Normal bowel sounds, Soft, No tenderness Extremities: No edema Neuro: Normal speech, Cranial nerves 3-12 NL Skin: Other (Multiple skin lesions with erythema/crusts/scales ) Psych/Mental Status: Mental status NL, Mood NL Medications Current Medications Medications Dose Ordered Sig/Fermín Route Start Time Stop Time Status Last Admin Dose Admin Vancomycin HCl 0 ml @ 0 mls/hr UD IV 06/07/25 05:30 Clotrimazole 1 applic Q12HR TOP 06/07/25 22:00 06/10/25 09:53 1 APPLIC Enoxaparin Sodium 40 mg DAILY SC 06/07/25 10:00 06/10/25 09:47 40 MG Lisinopril 2.5 mg DAILY PO 06/08/25 10:00 06/10/25 09:47 2.5 MG Ceftriaxone Sodium 50 ml @ 100 mls/hr DAILY@0300 IV 06/08/25 03:00 06/10/25 03:47 100 MLS/HR Vitamin A/Vitamin D 5 gm DAILYP PRN TOP 06/08/25 06:00 Vancomycin HCl 250 ml @ 250 mls/hr Q12H IV 06/07/25 23:00 06/09/25 23:59 250 MLS/HR Nystatin 1 applic BID TOP 06/07/25 22:00 06/10/25 09:53 1 APPLIC Fluconazole 100 ml @ 100 mls/hr DAILY IV 06/09/25 10:00 06/10/25 09:49 100 MLS/HR Tramadol HCl 50 mg Q8HPRN PRN PO 06/09/25 11:45 06/10/25 09:46 50 MG Pregabalin 25 mg BID PO 06/09/25 22:00 06/10/25 09:46 25 MG Laboratory Results Laboratory Tests 06/09/25 04:53 06/10/25 06:51 Urinalysis Test 06/09/25 16:46 Urine Color Colorless (Yellow) Urine Clarity Turbid (Clear) H Urine pH 5.5 (5.0-9.0) Urine Specific [place] 1.013 (1.001-1.035) Urine Protein Negative (Negative) Urine Ketones Negative (Negative) Urine Blood Trace /uL (Negative) H Urine Nitrite Negative (Negative) Urine Bilirubin Negative (Negative) Urine Urobilinogen Normal mg/dL (Negative) Urine Leukocyte Esterase 3+ /uL (Negative) Urine RBC 16 /hpf (0 - 4) Urine Microscopic WBC 375 /HPF (0-5) H Urine Squamous Epithelial Cells Mod /hpf (<5) Urine Bacteria Few /hpf (None Seen) H Urine Glucose Normal mg/dL (Normal) Microbiology Microbiology Date/Time Source Procedure Growth Status 06/09/25 16:46 Other Urine Culture - Preliminary Resulted 06/07/25 03:33 Blood Blood Culture - Preliminary NO GROWTH AFTER 72 HOURS OF INCUBATION. Resulted Labs and/or images reviewed: Labs reviewed by me Assessment/Plan Assessment/Plan Cutaneous dermatophyte infection - Wound cultures ordered - Clotrimazole 1% topical cream to be applied q.12 hours - Diphenhydramine 25 mg IV q4 hrs - Wound Care was consulted Possible bacterial superinfection of cutaneous fungal infection - Vancomycin IV per pharmacy protocol - Wound cultures ordered Type 2 diabetes mellitus -Mild SSI -Accu-cheks -Consistent carbohydrate diet Hypertension -Lisinopril 2.5 mg PO daily Urinalysis not done. Blood cultures are negative for any bacteremia. No evidence of sepsis at present. Continue current antibiotics for possible cutaneous fungal infection. We will get a echocardiogram to assess heart failure given her obesity with mild leg swelling. Encouraged activity. Otherwise continue rest of supportive care and treatment. Follow clinical management per clinical course. Discussed with the patient regarding care plan at bedside. 06/09/25 Continue current antibiotics and medications. Today we will straight cath her and obtain UA and urine culture. Meantime continue physical therapy. I will add Lyrica for her peripheral neuropathy and pain control. Patient would benefit from going to jail facility. Discussed with the patient and nurse regarding care plan. 06/10/2025: Continuing current management. Continuing with IV antibiotic. Continuing with physical therapy. Continuing with Lyrica. Discussed with the patient regarding to plan to go to jail home facility. The patient is waiting for jail home facility bed available.. We will continuing care and see how she doing with physical therapy. Discharge planning to SNF This medical document was created using an electronic medical record system with [employer] direct computerized dictation system. Although this document has been carefully reviewed, there may still be some phonetic and typographical errors. These areas are purely typographical due to imperfections of the software programs, and do not reflect any compromise in the patient's medical care. Plan discussed with: Patient Date of Service: Jun 10, 2025 Billing Provider: MINE RICHARD MD Common Visit Codes: [id number] INP/OBS CARE(HIGH) MINE RICHARD MD Jun 10, 2025 10:35
[2025-06-10 12:49] VITALS: BP 121/66; PULSE 75; RESP 18; TEMP 98; O2SAT 94
[2025-06-10 17:02] VITALS: BP 108/56; PULSE 73; RESP 18; TEMP 97.8; O2SAT 94
[2025-06-10 21:00] VITALS: BP 129/52; PULSE 80; RESP 17; TEMP 98.2; O2SAT 96
[2025-06-11 01:00] VITALS: BP 127/72; PULSE 76; RESP 16; TEMP 98; O2SAT 96
[2025-06-11 05:00] VITALS: BP 112/69; PULSE 77; RESP 16; TEMP 97.8; O2SAT 95
[2025-06-11] MEDS: TRIAMCINOLONE ACET0.5% TOPICAL CRE 15GM TOP PRN (05:30)
[2025-06-11 08:00] VITALS: PULSE 20; O2SAT 96
[2025-06-11 09:01] VITALS: BP 102/64; PULSE 82; RESP 16; TEMP 98; O2SAT 97
--- NOTE | 2025-06-11 12:52 | DVHPN2 ---
Subjective The patient is seen and examined at bedside. Stated that she feels little bit better. Reviewed: Care Plan, H&P, Labs, Medications, Previous Orders, Radiology Objective Vitals Vital Signs Date Time Temp Pulse Resp B/P (MAP) Pulse Ox O2 Delivery O2 Flow Rate FiO2 06/11/25 09:59 102/64 06/11/25 09:01 98.0 82 16 97 98.0 06/11/25 08:00 Room Air* 0 21 Intake/Output Intake and Output 06/11/25 07:00 Intake Total 1485 ml Balance 1485 ml Intake Oral 835 ml IV Total 650 ml # Voids 8 # Bowel Movements 1 General Appearance: Alert, Oriented X3, Cooperative HEENT: Atraumatic Lungs: Clear to auscultation, Normal air movement Cardiovascular: Regular rate, Normal S1, Normal S2, No murmurs Abdomen: Normal bowel sounds, Soft, No tenderness Extremities: No edema Neuro: Normal speech, Cranial nerves 3-12 NL Skin: Other (Multiple skin lesions with erythema/crusts/scales ) Psych/Mental Status: Mental status NL, Mood NL Medications Current Medications Medications Dose Ordered Sig/Fermín Route Start Time Stop Time Status Last Admin Dose Admin Vancomycin HCl 0 ml @ 0 mls/hr UD IV 06/07/25 05:30 Clotrimazole 1 applic Q12HR TOP 06/07/25 22:00 06/11/25 09:59 1 APPLIC Enoxaparin Sodium 40 mg DAILY SC 06/07/25 10:00 06/11/25 09:55 40 MG Lisinopril 2.5 mg DAILY PO 06/08/25 10:00 06/11/25 09:59 2.5 MG Ceftriaxone Sodium 50 ml @ 100 mls/hr DAILY@0300 IV 06/08/25 03:00 06/11/25 02:58 100 MLS/HR Vitamin A/Vitamin D 5 gm DAILYP PRN TOP 06/08/25 06:00 Vancomycin HCl 250 ml @ 250 mls/hr Q12H IV 06/07/25 23:00 06/10/25 23:03 250 MLS/HR Nystatin 1 applic BID TOP 06/07/25 22:00 06/10/25 21:37 1 APPLIC Fluconazole 100 ml @ 100 mls/hr DAILY IV 06/09/25 10:00 06/10/25 09:49 100 MLS/HR Tramadol HCl 50 mg Q8HPRN PRN PO 06/09/25 11:45 06/11/25 09:56 50 MG Pregabalin 25 mg BID PO 06/09/25 22:00 06/11/25 09:56 25 MG Triamcinolone Acetonide 1 applic DAILY PRN TOP 06/10/25 12:15 06/11/25 09:59 1 APPLIC Laboratory Results Laboratory Tests 06/09/25 04:53 06/10/25 06:51 06/11/25 06:50 Urinalysis Test 06/09/25 16:46 Urine Color Colorless (Yellow) Urine Clarity Turbid (Clear) H Urine pH 5.5 (5.0-9.0) Urine Specific [place] 1.013 (1.001-1.035) Urine Protein Negative (Negative) Urine Ketones Negative (Negative) Urine Blood Trace /uL (Negative) H Urine Nitrite Negative (Negative) Urine Bilirubin Negative (Negative) Urine Urobilinogen Normal mg/dL (Negative) Urine Leukocyte Esterase 3+ /uL (Negative) Urine RBC 16 /hpf (0 - 4) Urine Microscopic WBC 375 /HPF (0-5) H Urine Squamous Epithelial Cells Mod /hpf (<5) Urine Bacteria Few /hpf (None Seen) H Urine Glucose Normal mg/dL (Normal) Microbiology Microbiology Date/Time Source Procedure Growth Status 06/09/25 16:46 Other Urine Culture - Preliminary Resulted 06/07/25 03:33 Blood Blood Culture - Preliminary NO GROWTH AFTER 72 HOURS OF INCUBATION. Resulted Assessment/Plan Assessment/Plan Cutaneous dermatophyte infection - Wound cultures ordered - Clotrimazole 1% topical cream to be applied q.12 hours - Diphenhydramine 25 mg IV q4 hrs - Wound Care was consulted Possible bacterial superinfection of cutaneous fungal infection - Vancomycin IV per pharmacy protocol - Wound cultures ordered Type 2 diabetes mellitus -Mild SSI -Accu-cheks -Consistent carbohydrate diet Hypertension -Lisinopril 2.5 mg PO daily Urinalysis not done. Blood cultures are negative for any bacteremia. No evidence of sepsis at present. Continue current antibiotics for possible cutaneous fungal infection. We will get a echocardiogram to assess heart failure given her obesity with mild leg swelling. Encouraged activity. Otherwise continue rest of supportive care and treatment. Follow clinical management per clinical course. Discussed with the patient regarding care plan at bedside. 06/09/25 Continue current antibiotics and medications. Today we will straight cath her and obtain UA and urine culture. Meantime continue physical therapy. I will add Lyrica for her peripheral neuropathy and pain control. Patient would benefit from going to nursing home facility. Discussed with the patient and nurse regarding care plan. 06/10/2025: Continuing current management. Continuing with IV antibiotic. Continuing with physical therapy. Continuing with Lyrica. Discussed with the patient regarding to plan to go to nursing home home facility. The patient is waiting for nursing home home facility bed available.. We will continuing care and see how she doing with physical therapy. Discharge planning to SNF This medical document was created using an electronic medical record system with [employer] direct computerized dictation system. Although this document has been carefully reviewed, there may still be some phonetic and typographical errors. These areas are purely typographical due to imperfections of the software programs, and do not reflect any compromise in the patient's medical care. MINE RICHARD MD Jun 11, 2025 12:52
[2025-06-11 12:59] VITALS: BP 102/51; PULSE 95; RESP 16; TEMP 98.1; O2SAT 97
--- NOTE | 2025-06-12 23:59 | DVHDS2 ---
Discharge Summary Date of Admission Jun 07, 2025 at 05:21 Date of Discharge: Jun 11, 2025 Admitting Diagnosis Cutaneous dermatophyte infection Possible bacterial superinfection of cutaneous fungal infection Type 2 diabetes mellitus Hypertension Peripheral neuropathy Labs/Diagnostic Data: Laboratory Results Test 06/11/25 06:50 06/10/25 09:55 06/10/25 06:51 06/09/25 16:46 Creatinine 0.59 mg/dL (0.550-1.02) Glomerular Filtration Rate Calc 96 mL/min (>90) Vancomycin Level Trough 11.8 ug/mL (5-10) White Blood Count 9.3 10^3/uL (4.4-10.8) Red Blood Count 4.57 10^6/uL (4.0-5.20) Hemoglobin 12.9 g/dL (12.2-16.2) Hematocrit 38.6 % (36.0-46.0) Mean Corpuscular Volume 84.5 fL (80.0-100.0) Mean Corpuscular Hemoglobin 28.2 pg (28.0-32.0) Mean Corpuscular Hemoglobin Concent 33.3 g/dL (32.0-36.0) Red Cell Distribution Width 13.9 % (11.8-14.3) Platelet Count 240 10^3/uL (140-450) Mean Platelet Volume 8.2 fL (6.9-10.8) Neutrophils (%) (Auto) 63.4 % (37.0-80.0) Lymphocytes (%) (Auto) 25.4 % (10.0-50.0) Monocytes (%) (Auto) 5.9 % (0.0-12.0) Eosinophils (%) (Auto) 4.7 % (0.0-7.0) Basophils (%) (Auto) 0.6 % (0.0-2.0) Neutrophils # (Auto) 5.9 10 ^3/uL (1.6-8.6) Lymphocytes # (Auto) 2.4 10 ^3/uL (0.4-5.4) Monocytes # (Auto) 0.5 10 ^3/uL (0-1.3) Eosinophils # (Auto) 0.4 10 ^3/uL (0-0.8) Basophils # (Auto) 0.1 10 ^3/uL (0-0.2) Nucleated Red Blood Cells 0.0 % Urine Color Colorless (Yellow) Urine Clarity Turbid (Clear) Urine pH 5.5 (5.0-9.0) Urine Specific Hope 1.013 (1.001-1.035) Urine Protein Negative (Negative) Urine Ketones Negative (Negative) Urine Blood Trace /uL (Negative) Urine Nitrite Negative (Negative) Urine Bilirubin Negative (Negative) Urine Urobilinogen Normal mg/dL (Negative) Urine Leukocyte Esterase 3+ /uL (Negative) Urine RBC 16 /hpf (0 - 4) Urine Microscopic WBC 375 /HPF (0-5) Urine Squamous Epithelial Cells Mod /hpf (<5) Urine Bacteria Few /hpf (None Seen) Urine Glucose Normal mg/dL (Normal) Test 06/09/25 04:53 06/08/25 05:45 06/07/25 03:33 Sodium Level 139 mmol/L (136-145) Potassium Level 3.8 mmol/L (3.5-5.1) Chloride Level 107 mmol/L (98-107) Carbon Dioxide Level 22 mmol/L (20-31) Anion Gap 10 (5-15) Blood Urea Nitrogen 10 mg/dL (9-23) BUN/Creatinine Ratio 16.1 (10.0-20.0) Serum Glucose 139 mg/dL (74-106) Calcium Level 8.4 mg/dL (8.7-10.4) POC Glucose 89 mg/dl (70-106) Prothrombin Time 11.4 sec (9.3-11.8) Prothrombin Time INR 1.08 (0.9-1.15) Activated Partial Thromboplast Time 31.8 SEC (24.5-34.5) Hemoglobin A1c 5.8 % A1C (<5.7) Lactic Acid Level 1.4 mmol/L (0.4-2.0) Phosphorus Level 2.7 mg/dL (2.4-5.1) Magnesium Level 1.8 mg/dL (1.6-2.6) Total Bilirubin 0.4 mg/dL (0.2-1.0) Direct Bilirubin 0.1 mg/dL (<0.3) Aspartate Amino Transferase (AST) 23 U/L (13-40) Alanine Aminotransferase (ALT) 19 U/L (7-40) Alkaline Phosphatase 97 U/L (46-116) Total Protein 8.0 g/dL (5.7-8.2) Albumin 4.5 g/dL (3.2-4.8) Vitamin B12 Level 437 pg/mL (211-911) Vitamin D 25-Hydroxy 27.0 ng/mL (30.0-100) Thyroid Stimulating Hormone (TSH) 2.03 uIU/mL (0.55-4.78) Other Laboratory Tests 06/11/25 06:50 06/10/25 06:51 06/09/25 04:53 Brief Hx & Hospital Course: This is a 69 years old female with past medical history hypertension, recurrent UTI, come to emergency department because of skin rash. The patient said two weeks day ago she had some erythematous and dry rash in her low back associated with intense pruritus. Patient also had rash in the her armpit. Patient use A&D lotion with minimal relief. So the patient come to hospital for further evaluation. The patient was found to have : Cutaneous dermatophyte infection. The wound culture was ordered clotrimazole 1% topical cream was given every 12 hours. We will also give Diphenhydramine 25 mg IV q4 hrs Wound Care was consulted. The patient also has possible bacterial superinfection of cutaneous fungal infection. The patient was put on Diflucan 200 mg IV q.day. the patient doing well however still weak. Patient medically stable so we will [facility]. Activity as tolerated. Diet per home diet. Physical exam: HEENT: Normocephalic atraumatic pupils equal react to light and accommodation. Extraocular muscles intact, conjunctiva pink, oropharynx moist, no thrush, no exudate. Lymphatic: No lymphadenopathy Cardiovascular exam: S1, S2 was heard. No murmurs, rubs, gallops Lung: Clear on auscultation bilaterally, no wheeze, rale, rhonchi. GI: Abdominal soft, nondistended, nontenderness, positive bowel sounds. Extremity: No crepitus, cyanosis, edema. Pedal pulses present bilateral. Full range of motion. Skin: Normal turgor, no rash. Psych: Alert, oriented x3. Neurology: No focal deficits, cranial nerve II to XII grossly intact. This medical document was created using an electronic medical record system with [employer] direct computerized dictation system. Although this document has been carefully reviewed, there may still be some phonetic and typographical errors. These areas are purely typographical due to imperfections of the software programs, and do not reflect any compromise in the patient's medical care. Condition at Discharge: Stable Final Diagnosis/Problems List Cutaneous dermatophyte infection Possible bacterial superinfection of cutaneous fungal infection Type 2 diabetes mellitus Hypertension Peripheral neuropathy Discharge Disposition: Detention Facility Discharge Instruct/Medications Diet: Cardiac 2g Na,low cholest Activity: No Restrictions, As Tolerated Follow Up/Referral: PCP 1-2 WEEKS Medications: SEE MED LIST Scheduled Acetaminophen (Tylenol), 325 MG PO TID Diphenhydramine Hcl (Benadryl Allergy), 1 CAP PO QPM, (Reported) Levofloxacin Hemihydrate (Levaquin 500 Mg), 500 MG PO DAILY Discharge Statement: "Patient was advised to return to the ER or call 911 if any headaches, dizziness, shortness of breath, chest pain, abdominal pain, bleeding, fevers, or worsening of medical condition. Patient was counseled about treatment plan, medications, possible side effects, patientverbalized understanding. All questions were answered to the best of my ability. This discharge took greater then 30 minutes in planning, reviewing documentation, counseling the patient, and discussing with other team members." ASSESSMENT ASSESSMENT Assessment Date of Service: Jun 11, 2025 Billing Provider: MINE RICHARD MD Common Visit Codes: 76780-OBJ/OBS DISCH DAY >30min MINE RICHARD MD Jun 12, 2025 23:59
== END 2025-06-11 16:50 | DRG 872 ==
LOC: ER 20:13 → EDBD 20:13 → OVERFLOW 06-07 05:21 → WEST WING 06-07 23:13
PROVIDERS: ADMIT Internal Medicine; ATTEND Internal Medicine
DX: A41.9 Sepsis, unspecified organism (principal); N39.0 Urinary tract infection, site not specified; E66.9 Obesity, unspecified; E11.40 Type 2 diabetes mellitus with diabetic neuropathy, unspecified; E55.9 Vitamin D deficiency, unspecified; Z68.29 Body mass index [BMI] 29.0-29.9, adult; I11.0 Hypertensive heart disease with heart failure; B96.89 Other specified bacterial agents as the cause of diseases classified elsewhere; I50.9 Heart failure, unspecified; R32 Unspecified urinary incontinence
CPT/HCPCS: 36415; 71045; 80048; 80076; 80202; 81001; 82306; 82565; 82607; 82962; 83036; 83605; 83735; 84100; 84443; 85025; 85610; 85730; 87040; 87086; 96365; 97110; 97116; 97163; 97530; G0378; J1450